=== PATIENT | male | born 1950 | race Caucasian/White ===

== ENCOUNTER 2019-01-25 18:55 | Inpatient (IN) | payer MEDICAID, MEDICARE ==
[2019-01-25] MEDS ORDERED: Acetaminophen 500 MG Tab PO ONE (19:10)
[2019-01-25] MEDS ORDERED: Sodium Chloride 0.9% 1,000 ML IV ONE (19:27)
--- NOTE | 2019-01-25 20:00 | EDM.PDOC ---
ED HPI GENERAL MEDICAL PROBLEM - General Chief Complaint: General Stated Complaint: epigastric pain , urinary incontinence Time Seen by Provider: 01/25/19 19:05 Source of Information: Reports: Patient, EMS, Family History Limitations: Reports: No Limitations - History of Present Illness INITIAL COMMENTS - FREE TEXT/NARRATIVE: woke up this am and arthritis pain was worse than usual, states he was unable to get out of bed also has severe epigastric pain , no Nausea or vomiting, had BM On arrival here noted to have fever and ill looking still has epigastric pain pt also noted to e incontinent of urine , admitted to having pain with urination today daughter states he has short term memory and drinks a lot of alcohol Onset: Sudden Onset Date: 01/25/19 Duration: Getting Worse Location: Reports: Abdomen Quality: Reports: Ache, Dull Severity: Mild Improves with: Reports: Rest Worsens with: Reports: Eating, Movement Associated Symptoms: Reports: Cough, Fever/Chills, Headaches, Loss of Appetite, Malaise, Weakness L shoulder to elbow, R hip Pain Score (Numeric/FACES): 10 Lower Neck Pain Score (Numeric/FACES): 3 - Related Data Allergies Allergy/AdvReac Type Severity Reaction Status Date / Time Penicillins Allergy Rash Verified 01/25/19 19:01 Home Meds: Home Meds Doxazosin [Doxazosin Mesylate] 8 mg PO DAILY 01/25/19 [History] Metoprolol Tartrate 100 mg PO BID 01/25/19 [History] amLODIPine [Norvasc] 10 mg PO DAILY 01/25/19 [History] Past Medical History HEENT History: Reports: Other (See Below) Other HEENT History: hydrocephalus Cardiovascular History: Reports: Hypertension Social & Family History - Family History Cardiac: Reports: Hypertension, [place] Respiratory: Reports: Interstitial Lung Disease - Tobacco Use Smoking Status *Q: Never Smoker ED ROS GENERAL - Review of Systems Review Of Systems: See Below Constitutional: Reports: Fever, Malaise, Fatigue, Decreased Appetite HEENT: Reports: No Symptoms Respiratory: Reports: Shortness of Breath, Cough, Sputum Cardiovascular: Reports: No Symptoms Endocrine: Reports: No Symptoms GI/Abdominal: Reports: No Symptoms : Reports: Dysuria, Incontinence Musculoskeletal: Reports: Shoulder Pain, Arm Pain, Joint Pain Skin: Reports: No Symptoms Neurological: Reports: Confusion, Difficulty Walking, Gait Disturbance Psychiatric: Reports: Confusion Immunologic: Reports: No Symptoms ED EXAM, GENERAL - Physical Exam Exam: See Below Exam Limited By: No Limitations General Appearance: Alert, WD/WN, No Apparent Distress Eye Exam: Bilateral Eye: EOMI Ears: Normal TMs Ear Exam: Bilateral Ear: TM normal Nose: Normal Mucosa Throat/Mouth: Other (dry mucous membranes) Head: Atraumatic, Normocephalic Neck: Supple, Non-Tender, Full Range of Motion Respiratory/Chest: Decreased Breath Sounds, Rales Cardiovascular: Regular Rate, Rhythm, Other (non pitting edema bilaterally) GI/Abdominal: Soft, Distended, Tender, Abnormal Bowel Sounds (hypoactive). No: Guarding, Rigid Back Exam: Decreased Range of Motion, Paraspinal Tenderness Extremities: Pedal Edema, Joint Swelling, Limited Range of Motion, Other ( athritic changes in both hands and feet) Neurological: Alert, Oriented, CN II-XII Intact Psychiatric: Normal Affect Skin Exam: Warm Lymphatic: No Adenopathy EKG INTERPRETATION EKG Date: 01/25/19 Rhythm: NSR P-Wave: Present QRS: Normal ST-T: Normal Comparison: NA - No Prior EKG Course - Vital Signs Text/Narrative:: labs eKG done. IV started , results indicate pt has possible infection , started on Rocephin and zithromax then noted to have UTI , Cultures sent Decision made to admit Discussed same with family and pt Last Recorded V/S: Last Vital Signs Temp 37.5 C 01/25/19 20:50 Pulse 116 H 01/25/19 20:50 Resp 18 01/25/19 20:50 BP 142/76 H 01/25/19 20:50 Pulse Ox 92 L 01/25/19 20:50 - Orders/Labs/Meds Orders: Active Orders 24 hr Category Date Time Status Admission Status [Patient Status] [ADT] Routine ADT 01/25/19 21:12 Active Patient Status [ADT] Routine ADT 01/25/19 20:50 Active Ambulate [RC] PER UNIT ROUTINE Care 01/25/19 20:50 Active Antiembolic Devices [RC] .Routine Care 01/25/19 21:07 Active EKG Documentation Completion [RC] ASDIRECTED Care 01/25/19 20:00 Active Intake and Output [RC] QSHIFT Care 01/25/19 21:08 Active Notify Provider Vital Signs [RC] ASDIRECTED Care 01/25/19 21:08 Active Pulse Oximetry [RC] PRN Care 01/25/19 20:50 Active Up With Assistance [RC] ASDIRECTED Care 01/25/19 20:50 Active VTE/DVT Education [RC] Click to Edit Care 01/25/19 21:07 Active Vital Signs [RC] Q4H Care 01/25/19 20:50 Active Regular Diet [DIET] Diet 01/25/19 Breakfast Ordered Abdomen 2V AP Flat Upright [CR] Stat Exams 01/25/19 19:29 Taken Chest 2V [CR] Stat Exams 01/25/19 19:27 Taken BASIC METABOLIC PANEL,BMP [CHEM] AM Lab 01/26/19 05:11 Ordered CBC WITH AUTO DIFF [HEME] AM Lab 01/26/19 05:11 Ordered CULTURE BLOOD [BC] Urgent Lab 01/25/19 19:38 Received CULTURE BLOOD [BC] Urgent Lab 01/25/19 20:43 Received CULTURE URINE [RM] Stat Lab 01/25/19 20:28 Received Acetaminophen [Tylenol] Med 01/25/19 20:50 Active 650 mg PO Q4H PRN Docusate Sodium [Colace] Med 01/25/19 20:50 Active 200 mg PO DAILY PRN Magnesium Hydroxide [Milk of Magnesia] Med 01/25/19 20:50 Active 30 ml PO BID PRN Antiembolic Hose [OM.PC] Stat Oth 01/25/19 20:50 Ordered Blood Culture x2 Reflex Set [OM.PC] Urgent Oth 01/25/19 20:39 Ordered DVT/VTE Prophylaxis Reflex [OM.PC] Per Unit Routine Oth 01/25/19 20:50 Ordered Resuscitation Status Routine Resus Stat 01/25/19 20:50 Ordered EKG 12 Lead [EK] Routine Ther 01/25/19 20:00 Ordered Medication Orders Acetaminophen (Tylenol) 650 mg PO Q4H PRN PRN Reason: analgesia/fever Docusate Sodium (Colace) 200 mg PO DAILY PRN PRN Reason: Constipation Sodium Chloride (Normal Saline) 1,000 mls @ 100 mls/hr IV ASDIRECTED GLORIA Magnesium Hydroxide (Milk Of Magnesia) 30 ml PO BID PRN PRN Reason: Constipation Labs: Laboratory Tests 01/25/19 01/25/19 01/25/19 Range/Units 19:38 19:38 19:38 WBC 19.6 H (4.5-12.0) X10-3/uL RBC 3.76 L (4.30-5.75) x10(6)uL Hgb 12.2 L (13.5-17.8) g/dL Hct 35.4 (30.0-51.3) % MCV 94.2 (80-96) fL MCH 32.4 (27.7-33.6) pg MCHC 34.4 (32.2-35.4) g/dL RDW 13.9 (11.5-15.5) % Plt Count 342 (125-369) X10(3)uL MPV 7.4 (7.4-10.4) fL Add Manual Diff Yes Neutrophils % (Manual) 95 H (46-82) % Band Neutrophils % 2 (0-6) % Lymphocytes % (Manual) 2 L (13-37) % Monocytes % (Manual) 1 L (4-12) % Sodium 136 (135-145) mmol/L Potassium 4.0 (3.5-5.3) mmol/L Chloride 99 L (100-110) mmol/L Carbon Dioxide 24 (21-32) mmol/L BUN 23 H (7-18) mg/dL Creatinine 1.0 (0.70-1.30) mg/dL Est Cr Clr Drug Dosing 64.38 mL/min Estimated GFR (MDRD) > 60 (>60) BUN/Creatinine Ratio 23.0 H (9-20) Glucose 104 (80-116) mg/dL Calcium 9.4 (8.6-10.2) mg/dL Total Bilirubin 0.5 (0.1-1.3) mg/dL AST 26 H (5-25) IU/L ALT 35 (12-36) U/L Alkaline Phosphatase 95 (56-112) IU/L Troponin I (<0.017-0.056) ng/mL C-Reactive Protein 4.4 H* (0.5-0.9) mg/dL Total Protein 7.8 (6.0-8.0) g/dL Albumin 3.9 (3.2-4.6) g/dL Globulin 3.9 g/dL Albumin/Globulin Ratio 1.0 Urine Color (YELLOW) Urine Appearance (CLEAR) Urine pH (5.0-6.5) Ur Specific [place] (1.010-1.025) Urine Protein (NEGATIVE) mg/dL Urine Glucose (UA) (NORMAL) mg/dL Urine Ketones (NEGATIVE) mg/dL Urine Occult Blood (NEGATIVE) Urine Nitrite (NEGATIVE) Urine Bilirubin (NEGATIVE) Urine Urobilinogen (NEGATIVE) mg/dL Ur Leukocyte Esterase (NEGATIVE) Urine RBC (0-5) Urine WBC (0-5) Ur Squamous Epith Cells (NS,R,O) Urine Bacteria (NS) 01/25/19 01/25/19 Range/Units 19:38 20:28 WBC (4.5-12.0) X10-3/uL RBC (4.30-5.75) x10(6)uL Hgb (13.5-17.8) g/dL Hct (30.0-51.3) % MCV (80-96) fL MCH (27.7-33.6) pg MCHC (32.2-35.4) g/dL RDW (11.5-15.5) % Plt Count (125-369) X10(3)uL MPV (7.4-10.4) fL Add Manual Diff Neutrophils % (Manual) (46-82) % Band Neutrophils % (0-6) % Lymphocytes % (Manual) (13-37) % Monocytes % (Manual) (4-12) % Sodium (135-145) mmol/L Potassium (3.5-5.3) mmol/L Chloride (100-110) mmol/L Carbon Dioxide (21-32) mmol/L BUN (7-18) mg/dL Creatinine (0.70-1.30) mg/dL Est Cr Clr Drug Dosing mL/min Estimated GFR (MDRD) (>60) BUN/Creatinine Ratio (9-20) Glucose (80-116) mg/dL Calcium (8.6-10.2) mg/dL Total Bilirubin (0.1-1.3) mg/dL AST (5-25) IU/L ALT (12-36) U/L Alkaline Phosphatase (56-112) IU/L Troponin I < 0.017 L (<0.017-0.056) ng/mL C-Reactive Protein (0.5-0.9) mg/dL Total Protein (6.0-8.0) g/dL Albumin (3.2-4.6) g/dL Globulin g/dL Albumin/Globulin Ratio Urine Color Yellow (YELLOW) Urine Appearance Slightly cloudy (CLEAR) Urine pH 5.0 (5.0-6.5) Ur Specific [place] 1.015 (1.010-1.025) Urine Protein 30 H (NEGATIVE) mg/dL Urine Glucose (UA) Normal (NORMAL) mg/dL Urine Ketones 15 H (NEGATIVE) mg/dL Urine Occult Blood Large H (NEGATIVE) Urine Nitrite Negative (NEGATIVE) Urine Bilirubin Negative (NEGATIVE) Urine Urobilinogen Normal (NEGATIVE) mg/dL Ur Leukocyte Esterase Large H (NEGATIVE) Urine RBC >100 H (0-5) Urine WBC >100 H (0-5) Ur Squamous Epith Cells Few H (NS,R,O) Urine Bacteria Many H (NS) Meds: Medications Generic Name Dose Route Start Last Admin Trade Name Daly PRN Reason Stop Dose Admin Acetaminophen 650 mg 01/25/19 20:50 Tylenol PO Q4H PRN analgesia/fever Docusate Sodium 200 mg 01/25/19 20:50 Colace PO DAILY PRN Constipation Sodium Chloride 1,000 mls @ 100 mls/hr 01/25/19 21:45 Normal Saline IV ASDIRECTED GLORIA Magnesium Hydroxide 30 ml 01/25/19 20:50 Milk Of Magnesia PO BID PRN Constipation Discontinued Medications Generic Name Dose Route Start Last Admin Trade Name Daly PRN Reason Stop Dose Admin Acetaminophen 1,000 mg 01/25/19 19:10 01/25/19 19:18 Tylenol Extra Strength PO 01/25/19 19:11 1,000 mg ONETIME ONE Administration Sodium Chloride 1,000 mls @ 999 mls/hr 01/25/19 19:27 01/25/19 19:55 Normal Saline IV 01/25/19 20:27 999 mls/hr .BOLUS ONE Administration Ceftriaxone Sodium 1 gm/ 50 mls @ 200 mls/hr 01/25/19 20:39 01/25/19 20:55 Sodium Chloride IV 01/25/19 20:53 200 mls/hr ONETIME ONE Administration Azithromycin 500 mg/ Sodium 250 mls @ 250 mls/hr 01/25/19 20:41 01/25/19 21: 28 Chloride IV 01/25/19 21:40 250 mls/hr ONETIME ONE Administration Departure - Departure Time of Disposition: 09:10 Disposition: Admitted As Inpatient 67 Clinical Impression: UTI (urinary tract infection), Fever - Discharge Information *PRESCRIPTION DRUG MONITORING PROGRAM REVIEWED*: Not Applicable *COPY OF PRESCRIPTION DRUG MONITORING REPORT IN PATIENT FAM: Not Applicable Sepsis Event Note - Evaluation Sepsis Screening Result: Possible Sepsis Risk - Focused Exam Vital Signs: Vital Signs Temp Pulse Resp BP Pulse Ox 01/25/19 20:50 37.5 C 116 H 18 142/76 H 92 L 01/25/19 18:55 39.3 C H 131 H 28 H 161/92 H 94 L Date Exam was Performed: 01/25/19 Time Exam was Performed: 21:55 - My Orders Last 24 Hours: My Active Orders 01/25/19 19:27 Chest 2V [CR] Stat 01/25/19 19:29 Abdomen 2V AP Flat Upright [CR] Stat 01/25/19 19:38 CULTURE BLOOD [BC] Urgent 01/25/19 20:00 EKG Documentation Completion [RC] ASDIRECTED EKG 12 Lead [EK] Routine 01/25/19 20:28 CULTURE URINE [RM] Stat 01/25/19 20:39 Blood Culture x2 Reflex Set [OM.PC] Urgent 01/25/19 20:43 CULTURE BLOOD [BC] Urgent 01/25/19 20:50 Patient Status [ADT] Routine Ambulate [RC] PER UNIT ROUTINE Pulse Oximetry [RC] PRN Up With Assistance [RC] ASDIRECTED Vital Signs [RC] Q4H Acetaminophen [Tylenol] 650 mg PO Q4H PRN Docusate Sodium [Colace] 200 mg PO DAILY PRN Magnesium Hydroxide [Milk of Magnesia] 30 ml PO BID PRN Antiembolic Hose [OM.PC] Stat DVT/VTE Prophylaxis Reflex [OM.PC] Per Unit Routine Resuscitation Status Routine 01/25/19 21:07 Antiembolic Devices [RC] .Routine VTE/DVT Education [RC] Click to Edit 01/25/19 21:08 Intake and Output [RC] QSHIFT Notify Provider Vital Signs [RC] ASDIRECTED 01/25/19 21:12 Admission Status [Patient Status] [ADT] Routine 01/25/19 Breakfast Regular Diet [DIET] 01/26/19 05:11 BASIC METABOLIC PANEL,BMP [CHEM] AM CBC WITH AUTO DIFF [HEME] AM - Assessment/Plan Last 24 Hours: My Active Orders 01/25/19 19:27 Chest 2V [CR] Stat 01/25/19 19:29 Abdomen 2V AP Flat Upright [CR] Stat 01/25/19 19:38 CULTURE BLOOD [BC] Urgent 01/25/19 20:00 EKG Documentation Completion [RC] ASDIRECTED EKG 12 Lead [EK] Routine 01/25/19 20:28 CULTURE URINE [RM] Stat 01/25/19 20:39 Blood Culture x2 Reflex Set [OM.PC] Urgent 01/25/19 20:43 CULTURE BLOOD [BC] Urgent 01/25/19 20:50 Patient Status [ADT] Routine Ambulate [RC] PER UNIT ROUTINE Pulse Oximetry [RC] PRN Up With Assistance [RC] ASDIRECTED Vital Signs [RC] Q4H Acetaminophen [Tylenol] 650 mg PO Q4H PRN Docusate Sodium [Colace] 200 mg PO DAILY PRN Magnesium Hydroxide [Milk of Magnesia] 30 ml PO BID PRN Antiembolic Hose [OM.PC] Stat DVT/VTE Prophylaxis Reflex [OM.PC] Per Unit Routine Resuscitation Status Routine 01/25/19 21:07 Antiembolic Devices [RC] .Routine VTE/DVT Education [RC] Click to Edit 01/25/19 21:08 Intake and Output [RC] QSHIFT Notify Provider Vital Signs [RC] ASDIRECTED 01/25/19 21:12 Admission Status [Patient Status] [ADT] Routine 01/25/19 Breakfast Regular Diet [DIET] 01/26/19 05:11 BASIC METABOLIC PANEL,BMP [CHEM] AM CBC WITH AUTO DIFF [HEME] AM
[2019-01-25] MEDS ORDERED: cefTRIAXone 1 GM in Sodium Chloride 0.9% 50 ML IV ONE (20:39)
[2019-01-25] MEDS ORDERED: Azithromycin 500 MG in Sodium Chloride 0.9% 250 ML IV ONE (20:41)
[2019-01-25] MEDS ORDERED: Magnesium Hydroxide 400 MG/5 ML Susp 30 ML Cup PO PRN (20:50)
[2019-01-25] MEDS ORDERED: Docusate Sodium 100 MG Cap PO PRN (20:50)
[2019-01-25] MEDS ORDERED: Sodium Chloride 0.9% 1,000 ML IV SCH (21:45)
[2019-01-26] MEDS: Acetaminophen 325 MG Tab PO PRN ×3 (07:43→20:41)
--- NOTE | 2019-01-26 09:06 | PCM.HP.2 ---
H&P History of Present Illness - General Date of Service: 01/26/19 Admit Problem/Dx: Admission Diagnosis/Problem Admission Diagnosis/Problem UTI, Urinary tract infectious disease Source of Information: Patient, Old Records History Limitations: Reports: No Limitations - History of Present Illness Initial Comments - Free Text/Narative: Mr. Sidhu is a 68-year-old male admitted yesterday because of pain. He complained epigastric pain that is intermittent in nature moderate to severe in intensity, with no radiation. Sudden onset. He also complains of burning micturition, frequency and was found a fever. 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 He is also reported to drink 3-4 beers of alcohol daily. Lower Neck Pain Score (Numeric/FACES): 3 L shoulder to elbow, R hip Pain Score (Numeric/FACES): 10 - Related Data Allergies/Adverse Reactions: Allergies Allergy/AdvReac Type Severity Reaction Status Date / Time Penicillins Allergy Rash Verified 01/25/19 19:01 Home Medications: Home Meds Doxazosin [Doxazosin Mesylate] 8 mg PO DAILY 01/25/19 [History] Dutasteride 0.5 mg PO DAILY 01/25/19 [History] Escitalopram Oxalate 10 mg PO DAILY 01/25/19 [History] Ferrous Sulfate 325 mg PO DAILY 01/25/19 [History] Lisinopril 40 mg PO DAILY 01/25/19 [History] Metoprolol Tartrate 100 mg PO BID 01/25/19 [History] Multivitamin/Iron/Folic Acid [Centrum Adults Tablet] 1 each PO DAILY 01/25/19 [ History] Omeprazole 20 mg PO DAILY 01/25/19 [History] Potassium Chloride 20 meq PO DAILY 01/25/19 [History] Sennosides/Docusate Sodium [Senna-S] 1 tab PO DAILY 01/25/19 [History] Simvastatin 20 mg PO BEDTIME 01/25/19 [History] amLODIPine [Norvasc] 10 mg PO DAILY 01/25/19 [History] Past Medical History HEENT History: Reports: Other (See Below) Other HEENT History: hydrocephalus Cardiovascular History: Reports: Hypertension Gastrointestinal History: Reports: Colon Polyp, GI Bleed, Other (See Below) Other Gastrointestinal History: gi bleed 1990 Genitourinary History: Reports: BPH, Urinary Incontinence Musculoskeletal History: Reports: Back Pain, Chronic, Osteoarthritis Neurological History: Reports: Concussion, CVA, Other (See Below) Other Neuro History: Lost some use of L arm Psychiatric History: Reports: Depression Hematologic History: Reports: Blood Transfusion(s) - Infectious Disease History Infectious Disease History: Reports: Chicken Pox, Measles, Mumps, Shingles - Past Surgical History Cardiovascular Surgical History: Reports: None GI Surgical History: Reports: Colonoscopy, Polypectomy Other GI Surgeries/Procedures: polypectomy 2013 Male Surgical History: Reports: Circumcision, Renal Calculus Neurological Surgical History: Reports: None Musculoskeletal Surgical History: Reports: None Social & Family History - Family History Family Medical History: Noncontributory Cardiac: Reports: Hypertension, [place] Respiratory: Reports: Interstitial Lung Disease - Tobacco Use Smoking Status *Q: Never Smoker Second Hand Smoke Exposure: No - Caffeine Use Caffeine Use: Reports: Coffee Other Caffeine Use: 1-2 cups a day - Alcohol Use Days Per Week of Alcohol Use: 3 Number of Drinks Per Day: 4 Total Drinks Per Week: 12 Date of Last Drink: 01/24/19 Time of Last Drink: 16:00 - Recreational Drug Use Recreational Drug Use: No H&P Review of Systems - Review of Systems: Review Of Systems: Comprehensive ROS is negative, except as noted in HPI. Exam - Exam Exam: See Below - Vital Signs Vital Signs: Last Vital Signs Temp 98.5 F 01/26/19 03:53 Pulse 94 01/26/19 03:53 Resp 18 01/26/19 03:53 BP 151/89 H 01/26/19 03:53 Pulse Ox 95 01/26/19 03:53 Weight: 91.58 kg - Exam General: Alert, Oriented, 4 HEENT: PERRLA, Hearing Intact, Mucosa Moist & Elfrida, Nares Patent, Normal Nasal Septum, Posterior Pharynx Clear, Conjunctiva Clear, EOMI, EACs Clear, TMs Clear Neck: Supple, Trachea Midline, 2 Lungs: Clear to Auscultation, Normal Respiratory Effort Cardiovascular: Regular Rate, Regular Rhythm GI/Abdominal Exam: Normal Bowel Sounds, Soft, Non-Tender, No Organomegaly, No Distention, No Abnormal Bruit, No Mass, Pelvis Stable (Male) Exam: Deferred Rectal (Males) Exam: Deferred Back Exam: Normal Inspection, Full Range of Motion, NT Extremities: Normal Inspection, Normal Range of Motion, Non-Tender, No Pedal Edema, Normal Capillary Refill Skin: Warm, Dry, Intact Neurological: Cranial Nerves Intact, Reflexes Equal Bilateral Neuro Extensive - Mental Status: Alert, Disorientation to Time. No: Oriented x3 Neuro Extensive - Motor, Sensory, Reflexes: CN II-XII Intact, Normal Gait, Normal Reflexes Psychiatric: Alert, Normal Affect, Normal Mood - Patient Data Lab Results Last 24 hrs: Laboratory Results - last 24 hr 01/25/19 01/25/19 01/25/19 Range/Units 19:38 19:38 19:38 WBC 19.6 H (4.5-12.0) X10-3/uL RBC 3.76 L (4.30-5.75) x10(6)uL Hgb 12.2 L (13.5-17.8) g/dL Hct 35.4 (30.0-51.3) % MCV 94.2 (80-96) fL MCH 32.4 (27.7-33.6) pg MCHC 34.4 (32.2-35.4) g/dL RDW 13.9 (11.5-15.5) % Plt Count 342 (125-369) X10(3)uL MPV 7.4 (7.4-10.4) fL Add Manual Diff Yes Neutrophils % (Manual) 95 H (46-82) % Band Neutrophils % 2 (0-6) % Lymphocytes % (Manual) 2 L (13-37) % Monocytes % (Manual) 1 L (4-12) % Sodium 136 (135-145) mmol/L Potassium 4.0 (3.5-5.3) mmol/L Chloride 99 L (100-110) mmol/L Carbon Dioxide 24 (21-32) mmol/L BUN 23 H (7-18) mg/dL Creatinine 1.0 (0.70-1.30) mg/dL Est Cr Clr Drug Dosing 64.38 mL/min Estimated GFR (MDRD) > 60 (>60) BUN/Creatinine Ratio 23.0 H (9-20) Glucose 104 (80-116) mg/dL Calcium 9.4 (8.6-10.2) mg/dL Total Bilirubin 0.5 (0.1-1.3) mg/dL AST 26 H (5-25) IU/L ALT 35 (12-36) U/L Alkaline Phosphatase 95 (56-112) IU/L Troponin I (<0.017-0.056) ng/mL C-Reactive Protein 4.4 H* (0.5-0.9) mg/dL Total Protein 7.8 (6.0-8.0) g/dL Albumin 3.9 (3.2-4.6) g/dL Globulin 3.9 g/dL Albumin/Globulin Ratio 1.0 Urine Color (YELLOW) Urine Appearance (CLEAR) Urine pH (5.0-6.5) Ur Specific [place] (1.010-1.025) Urine Protein (NEGATIVE) mg/dL Urine Glucose (UA) (NORMAL) mg/dL Urine Ketones (NEGATIVE) mg/dL Urine Occult Blood (NEGATIVE) Urine Nitrite (NEGATIVE) Urine Bilirubin (NEGATIVE) Urine Urobilinogen (NEGATIVE) mg/dL Ur Leukocyte Esterase (NEGATIVE) Urine RBC (0-5) Urine WBC (0-5) Ur Squamous Epith Cells (NS,R,O) Urine Bacteria (NS) Ethyl Alcohol (<0.03) % 01/25/19 01/25/19 01/25/19 Range/Units 19:38 19:38 20:28 WBC (4.5-12.0) X10-3/uL RBC (4.30-5.75) x10(6)uL Hgb (13.5-17.8) g/dL Hct (30.0-51.3) % MCV (80-96) fL MCH (27.7-33.6) pg MCHC (32.2-35.4) g/dL RDW (11.5-15.5) % Plt Count (125-369) X10(3)uL MPV (7.4-10.4) fL Add Manual Diff Neutrophils % (Manual) (46-82) % Band Neutrophils % (0-6) % Lymphocytes % (Manual) (13-37) % Monocytes % (Manual) (4-12) % Sodium (135-145) mmol/L Potassium (3.5-5.3) mmol/L Chloride (100-110) mmol/L Carbon Dioxide (21-32) mmol/L BUN (7-18) mg/dL Creatinine (0.70-1.30) mg/dL Est Cr Clr Drug Dosing mL/min Estimated GFR (MDRD) (>60) BUN/Creatinine Ratio (9-20) Glucose (80-116) mg/dL Calcium (8.6-10.2) mg/dL Total Bilirubin (0.1-1.3) mg/dL AST (5-25) IU/L ALT (12-36) U/L Alkaline Phosphatase (56-112) IU/L Troponin I < 0.017 L (<0.017-0.056) ng/mL C-Reactive Protein (0.5-0.9) mg/dL Total Protein (6.0-8.0) g/dL Albumin (3.2-4.6) g/dL Globulin g/dL Albumin/Globulin Ratio Urine Color Yellow (YELLOW) Urine Appearance Slightly cloudy (CLEAR) Urine pH 5.0 (5.0-6.5) Ur Specific [place] 1.015 (1.010-1.025) Urine Protein 30 H (NEGATIVE) mg/dL Urine Glucose (UA) Normal (NORMAL) mg/dL Urine Ketones 15 H (NEGATIVE) mg/dL Urine Occult Blood Large H (NEGATIVE) Urine Nitrite Negative (NEGATIVE) Urine Bilirubin Negative (NEGATIVE) Urine Urobilinogen Normal (NEGATIVE) mg/dL Ur Leukocyte Esterase Large H (NEGATIVE) Urine RBC >100 H (0-5) Urine WBC >100 H (0-5) Ur Squamous Epith Cells Few H (NS,R,O) Urine Bacteria Many H (NS) Ethyl Alcohol < 0.03 (<0.03) % 01/26/19 01/26/19 Range/Units 06:40 06:40 WBC 21.6 H (4.5-12.0) X10-3/uL RBC 3.36 L (4.30-5.75) x10(6)uL Hgb 10.7 L (13.5-17.8) g/dL Hct 31.4 (30.0-51.3) % MCV 93.4 (80-96) fL MCH 31.9 (27.7-33.6) pg MCHC 34.1 (32.2-35.4) g/dL RDW 13.4 (11.5-15.5) % Plt Count 299 (125-369) X10(3)uL MPV 7.1 L (7.4-10.4) fL Add Manual Diff Yes Neutrophils % (Manual) 81 (46-82) % Band Neutrophils % (0-6) % Lymphocytes % (Manual) 11 L (13-37) % Monocytes % (Manual) 8 (4-12) % Sodium 138 (135-145) mmol/L Potassium 3.9 (3.5-5.3) mmol/L Chloride 102 (100-110) mmol/L Carbon Dioxide 24 (21-32) mmol/L BUN 17 (7-18) mg/dL Creatinine 0.9 (0.70-1.30) mg/dL Est Cr Clr Drug Dosing 71.87 mL/min Estimated GFR (MDRD) > 60 (>60) BUN/Creatinine Ratio 18.9 (9-20) Glucose 95 (80-116) mg/dL Calcium 8.7 (8.6-10.2) mg/dL Total Bilirubin (0.1-1.3) mg/dL AST (5-25) IU/L ALT (12-36) U/L Alkaline Phosphatase (56-112) IU/L Troponin I (<0.017-0.056) ng/mL C-Reactive Protein (0.5-0.9) mg/dL Total Protein (6.0-8.0) g/dL Albumin (3.2-4.6) g/dL Globulin g/dL Albumin/Globulin Ratio Urine Color (YELLOW) Urine Appearance (CLEAR) Urine pH (5.0-6.5) Ur Specific [place] (1.010-1.025) Urine Protein (NEGATIVE) mg/dL Urine Glucose (UA) (NORMAL) mg/dL Urine Ketones (NEGATIVE) mg/dL Urine Occult Blood (NEGATIVE) Urine Nitrite (NEGATIVE) Urine Bilirubin (NEGATIVE) Urine Urobilinogen (NEGATIVE) mg/dL Ur Leukocyte Esterase (NEGATIVE) Urine RBC (0-5) Urine WBC (0-5) Ur Squamous Epith Cells (NS,R,O) Urine Bacteria (NS) Ethyl Alcohol (<0.03) % Result Diagrams: 01/26/19 06:40 01/26/19 06:40 Bharat Results Last 24 hrs: Microbiology 01/25/19 19:30 Influenza Type A Antigen Screen - Final Nasopharyngeal Swab NEGATIVE INFLUENZA A VIRUS AG REFERENCE RANGE: NEGATIVE Influenza Type B Antigen Screen - Final NEGATIVE INFLUENZA B VIRUS AG REFERENCE RANGE: NEGATIVE EKG INTERPRETATION Rhythm: NSR Sepsis Event Note - Evaluation Sepsis Screening Result: No Definite Risk - Focused Exam Vital Signs: Vital Signs Temp Pulse Resp BP Pulse Ox 01/26/19 03:53 98.5 F 94 18 151/89 H 95 01/26/19 00:00 99.0 F 105 H 21 H 133/79 94 L 01/25/19 21:20 99.8 F 122 H 22 H 156/88 H 95 Date Exam was Performed: 01/26/19 Time Exam was Performed: 09:00 - Problem List (1) UTI (urinary tract infection) SNOMED Code(s): 91752473 ICD Code: N39.0 - URINARY TRACT INFECTION, SITE NOT SPECIFIED Status: Acute Current Visit: Yes (2) Epigastric abdominal pain SNOMED Code(s): 77343123 ICD Code: R10.13 - EPIGASTRIC PAIN Status: Acute Current Visit: Yes (3) Knee pain SNOMED Code(s): 48495371 ICD Code: M25.569 - PAIN IN UNSPECIFIED KNEE Status: Acute Current Visit : Yes Qualifiers: Chronicity: chronic Laterality: bilateral Qualified Code(s): M25.561 - Pain in right knee; M25.562 - Pain in left knee; G89.29 - Other chronic pain (4) Alcohol dependence SNOMED Code(s): 14144053 ICD Code: F10.20 - ALCOHOL DEPENDENCE, UNCOMPLICATED Status: Chronic Current Visit: Yes Qualifiers: Substance use status: uncomplicated Qualified Code(s): F10.20 - Alcohol dependence, uncomplicated (5) HTN (hypertension) SNOMED Code(s): 42562414 ICD Code: I10 - ESSENTIAL (PRIMARY) HYPERTENSION Status: Chronic Current Visit: Yes Qualifiers: Hypertension type: essential hypertension Qualified Code(s): I10 - Essential (primary) hypertension (6) HLD (hyperlipidemia) SNOMED Code(s): 38015436 ICD Code: E78.5 - HYPERLIPIDEMIA, UNSPECIFIED Status: Chronic Current Visit: Yes (7) Anxiety and depression SNOMED Code(s): 300954617 ICD Code: F41.9 - ANXIETY DISORDER, UNSPECIFIED; F32.9 - MAJOR DEPRESSIVE DISORDER, SINGLE EPISODE, UNSPECIFIED Status: Acute Current Visit: Yes (8) Anemia SNOMED Code(s): 854893741 ICD Code: D64.9 - ANEMIA, UNSPECIFIED Status: Acute Current Visit: Yes (9) Memory changes SNOMED Code(s): 971168367 ICD Code: R41.3 - OTHER AMNESIA Status: Acute Current Visit: Yes Problem List Initiated/Reviewed/Updated: Yes Orders Last 24hrs: Active Orders 24 hr Category Date Time Status Admission Status [Patient Status] [ADT] Routine ADT 01/25/19 21:12 Active Patient Status [ADT] Routine ADT 01/25/19 20:50 Active Ambulate [RC] PER UNIT ROUTINE Care 01/25/19 20:50 Active Antiembolic Devices [RC] .Routine Care 01/25/19 21:07 Active EKG Documentation Completion [RC] ASDIRECTED Care 01/25/19 20:00 Active Intake and Output [RC] QSHIFT Care 01/25/19 21:08 Active Notify Provider Vital Signs [RC] ASDIRECTED Care 01/25/19 21:08 Active Pulse Oximetry [RC] PRN Care 01/25/19 20:50 Active Up With Assistance [RC] ASDIRECTED Care 01/25/19 20:50 Active VTE/DVT Education [RC] Click to Edit Care 01/25/19 21:07 Active Vital Signs [RC] Q4H Care 01/25/19 20:50 Active OT Evaluation and Treatment [CONS] Routine Cons 01/26/19 08:57 Ordered PT Evaluation and Treatment [CONS] Routine Cons 01/26/19 08:57 Ordered Abdomen 2V AP Flat Upright [CR] Stat Exams 01/25/19 19:29 Taken Chest 2V [CR] Stat Exams 01/25/19 19:27 Taken BASIC METABOLIC PANEL,BMP [CHEM] AM Lab 01/27/19 05:11 Ordered CBC WITH AUTO DIFF [HEME] AM Lab 01/27/19 05:11 Ordered CULTURE BLOOD [BC] Urgent Lab 01/25/19 19:38 Received CULTURE BLOOD [BC] Urgent Lab 01/25/19 20:43 Received CULTURE URINE [RM] Stat Lab 01/25/19 20:28 Received LIPASE [CHEM] Routine Lab 01/26/19 08:57 Ordered Acetaminophen [Tylenol] Med 01/25/19 20:50 Active 650 mg PO Q4H PRN Docusate Sodium [Colace] Med 01/25/19 20:50 Active 200 mg PO DAILY PRN Docusate Sodium/Sennosides [Senna Plus] Med 01/26/19 09:00 Ordered 1 tab PO DAILY Doxazosin [Cardura] Med 01/26/19 09:00 Ordered 8 mg PO DAILY Dutasteride [Avodart] Med 01/26/19 09:00 Ordered 0.5 mg PO DAILY Escitalopram [Lexapro] Med 01/26/19 09:00 Ordered 10 mg PO DAILY Levofloxacin/Dextrose 5%-Water [Levaquin in D5W 750 MG/ Med 01/26/19 09:00 Ordered 150 ML] 750 mg Premix Bag 1 bag IV Q24H Lisinopril [Prinivil] Med 01/26/19 09:00 Ordered 40 mg PO DAILY Magnesium Hydroxide [Milk of Magnesia] Med 01/25/19 20:50 Active 30 ml PO BID PRN Metoprolol Tartrate [Lopressor] Med 01/26/19 09:00 Ordered 100 mg PO BID Multivitamin/Iron/Folic Acid [Centrum Adults Tablet] Med 01/26/19 09:00 Ordered 1 each PO DAILY Omeprazole [Omeprazole] Med 01/26/19 09:00 Ordered 20 mg PO DAILY Simvastatin [Zocor] Med 01/26/19 21:00 Ordered 20 mg PO BEDTIME amLODIPine [Norvasc] Med 01/26/19 09:00 Ordered 10 mg PO DAILY Antiembolic Hose [OM.PC] Stat Oth 01/25/19 20:50 Ordered Blood Culture x2 Reflex Set [OM.PC] Urgent Oth 01/25/19 20:39 Ordered DVT/VTE Prophylaxis Reflex [OM.PC] Per Unit Routine Oth 01/25/19 20:50 Ordered Resuscitation Status Routine Resus Stat 01/25/19 20:50 Ordered EKG 12 Lead [EK] Routine Ther 01/25/19 20:00 Ordered Medication Orders Acetaminophen (Tylenol) 650 mg PO Q4H PRN PRN Reason: analgesia/fever Last Admin: 01/26/19 07:43 Dose: 650 mg Amlodipine Besylate (Norvasc) 10 mg PO DAILY [facility] Docusate Sodium (Colace) 200 mg PO DAILY PRN PRN Reason: Constipation Levofloxacin/Dextrose 750 mg/ (Premix) 150 mls @ 100 mls/hr IV Q24H [facility] Magnesium Hydroxide (Milk Of Magnesia) 30 ml PO BID PRN PRN Reason: Constipation Assessment/Plan Comment:: Mr. Sidhu has a high white cell count, and fever I suspect that he has an upper urinary tract infection. Pneumonia can not be ruled out on Xray.I will start him on Levaquin 750 mg IV daily. I've discontinued IV fluids and will encourage oral intake. I will ask physical and occupational therapy to see him for ambulation. Resume his oral medications for hypertension hyperlipidemia anxiety and depression. - Mortality Measure Prognosis:: Good
[2019-01-26] MEDS: Levofloxacin/Dextrose 5%-Water 750 MG in Premix Bag 1 BAG IV SCH (10:04)
[2019-01-26] MEDS: Doxazosin 4 MG Tab PO SCH (10:10)
[2019-01-26] MEDS: Dutasteride 0.5 MG Cap PO SCH (10:10)
[2019-01-26] MEDS: Escitalopram 10 MG Tab PO SCH (10:11)
[2019-01-26] MEDS: amLODIPine 10 MG Tab PO SCH (10:12)
[2019-01-26] MEDS: Metoprolol Tartrate 100 MG Tab PO SCH ×2 (10:12→20:12)
[2019-01-26] MEDS: Pantoprazole 40 MG Tab.CR PO SCH (10:13)
[2019-01-26] MEDS: Multivitamins,Therapeutic Tab PO SCH (10:14)
--- NOTE | 2019-01-26 14:58 | CR ---
INDICATION: Epigastric pain. ABDOMEN, 2 VIEWS: Five images of the abdomen were obtained, upright seated in chair and supine. No definite free air was seen. The pattern of gas and feces is fairly nonspecific without evidence of free air or obstruction demonstrated. A dextroconcave rotoscoliosis of the lumbar spine is noted of moderate degree. No definite organomegaly, mass lesions or nonvascular pathologic calcifications were identified. Multiple phleboliths are noted in the pelvis. IMPRESSION: 1. Nonacute abdomen. 2. Scoliosis lumbar spine. MTDD
--- NOTE | 2019-01-26 15:01 | CR ---
INDICATION: Fever. CHEST, 2 VIEWS: AP and lateral upright views of the chest were obtained and reveal the heart to be normal in size. There is increased density behind the heart, which may simply be on the basis of a somewhat tortuous aorta. Small fixed hiatal hernia could also be present but is not well demonstrated. The aorta is tortuous with calcification in the arch. The heart did not appear grossly enlarged. A definite active infiltrate or effusion was not identified. Degenerative changes noted in the lower thoracic spine and upper lumbar spine. Overlying snaps are noted. IMPRESSION: No acute process. No consolidating pneumonia identified. MTDD
[2019-01-26] MEDS: Simvastatin 20 MG Tab PO SCH (20:12)
[2019-01-27] MEDS: Acetaminophen 325 MG Tab PO PRN ×3 (03:51→17:24)
[2019-01-27] MEDS: Pantoprazole 40 MG Tab.CR PO SCH (04:59)
[2019-01-27] MEDS: Doxazosin 4 MG Tab PO SCH (09:35)
[2019-01-27] MEDS: Dutasteride 0.5 MG Cap PO SCH (09:35)
[2019-01-27] MEDS: Escitalopram 10 MG Tab PO SCH (09:36)
[2019-01-27] MEDS: amLODIPine 10 MG Tab PO SCH (09:36)
[2019-01-27] MEDS: Metoprolol Tartrate 100 MG Tab PO SCH ×2 (09:36→20:34)
[2019-01-27] MEDS: Multivitamins,Therapeutic Tab PO SCH (09:37)
[2019-01-27] MEDS: Levofloxacin/Dextrose 5%-Water 750 MG in Premix Bag 1 BAG IV SCH (09:38)
[2019-01-27] MEDS: Fluticasone Propionate Nasal Spray 16 GM Bottle NASBOTH SCH (12:11)
--- NOTE | 2019-01-27 12:29 | PCM.PN ---
- General Info Date of Service: 01/27/19 Subjective Update: Patient is feeling better, no longer has the epigastric pain, still some left abdomen pain. Denies shortness of breath, chest pain, nausea, vomiting or diarrhea. Denies peripheral edema. Lives at [facility]. States he has been incontinent at home due to enlarged prostate. No fevers or chills. - Patient Data Vitals - Most Recent: Last Vital Signs Temp 97 F 01/27/19 08:00 Pulse 100 01/27/19 09:36 Resp 20 01/27/19 08:00 BP 116/79 01/27/19 09:36 Pulse Ox 96 01/27/19 08:00 Weight - Most Recent: 201 lb 14.4 oz I&O - Last 24 Hours: Intake & Output 01/26/19 01/27/19 01/27/19 22:59 06:59 14:59 Intake Total 900 400 Output Total 300 200 Balance 600 200 Lab Results Last 24 Hours: Laboratory Results - last 24 hr 01/27/19 01/27/19 Range/Units 06:10 06:10 WBC 15.3 H (4.5-12.0) X10-3/uL RBC 3.54 L (4.30-5.75) x10(6)uL Hgb 11.5 L (13.5-17.8) g/dL Hct 33.6 (30.0-51.3) % MCV 94.9 (80-96) fL MCH 32.5 (27.7-33.6) pg MCHC 34.2 (32.2-35.4) g/dL RDW 14.1 (11.5-15.5) % Plt Count 298 (125-369) X10(3)uL MPV 7.6 (7.4-10.4) fL Neut % (Auto) 80.3 (46-82) % Lymph % (Auto) 8.7 L (13-37) % [place] % (Auto) 9.1 (4-12) % Eos % (Auto) 2 (1.0-5.0) % Baso % (Auto) 0 (0-2) % Neut # (Auto) 12.3 H (1.6-8.3) # Lymph # (Auto) 1.3 (0.6-5.0) # [place] # (Auto) 1.4 H (0.0-1.3) # Eos # (Auto) 0.2 (0.0-0.8) # Baso # (Auto) 0.1 (0.0-0.2) # Sodium 133 L (135-145) mmol/L Potassium 4.1 (3.5-5.3) mmol/L Chloride 98 L (100-110) mmol/L Carbon Dioxide 24 (21-32) mmol/L BUN 16 (7-18) mg/dL Creatinine 0.9 (0.70-1.30) mg/dL Est Cr Clr Drug Dosing 71.87 mL/min Estimated GFR (MDRD) > 60 (>60) BUN/Creatinine Ratio 17.8 (9-20) Glucose 98 (80-116) mg/dL Calcium 9.0 (8.6-10.2) mg/dL Bharat Results Last 24 Hours: Microbiology 01/25/19 20:43 Aerobic Blood Culture - Preliminary Blood - Venous - Lab Draw NO GROWTH AFTER 1 DAY Anaerobic Blood Culture - Preliminary NO GROWTH AFTER 1 DAY 01/25/19 19:38 Aerobic Blood Culture - Preliminary Blood - Venous NO GROWTH AFTER 1 DAY Anaerobic Blood Culture - Preliminary NO GROWTH AFTER 1 DAY 01/25/19 20:28 Urine Culture - Preliminary Urine, Midstream Gram Negative Rods Med Orders - Current: Current Medications Acetaminophen (Tylenol) 650 mg PO Q4H PRN PRN Reason: analgesia/fever Last Admin: 01/27/19 12:12 Dose: 650 mg Amlodipine Besylate (Norvasc) 10 mg PO DAILY [facility] Last Admin: 01/27/19 09:36 Dose: 10 mg Docusate Sodium (Colace) 200 mg PO DAILY PRN PRN Reason: Constipation Doxazosin Mesylate (Cardura) 8 mg PO DAILY [facility] Last Admin: 01/27/19 09:35 Dose: 8 mg Dutasteride (Avodart) 0.5 mg PO DAILY [facility] Last Admin: 01/27/19 09:35 Dose: 0.5 mg Escitalopram Oxalate (Lexapro) 10 mg PO DAILY [facility] Last Admin: 01/27/19 09:36 Dose: 10 mg Fluticasone Propionate (Flonase) 0 gm NASBOTH DAILY [facility] Last Admin: 01/27/19 12:11 Dose: 1 unit Levofloxacin/Dextrose 750 mg/ (Premix) 150 mls @ 100 mls/hr IV Q24H [facility] Last Admin: 01/27/19 09:38 Dose: 100 mls/hr Lisinopril (Prinivil) 40 mg PO DAILY [facility] Last Admin: 01/27/19 09:37 Dose: 40 mg Magnesium Hydroxide (Milk Of Magnesia) 30 ml PO BID PRN PRN Reason: Constipation Metoprolol Tartrate (Lopressor) 100 mg PO BID [facility] Last Admin: 01/27/19 09:36 Dose: 100 mg Multivitamins (Thera) 1 each PO DAILY [facility] Last Admin: 01/27/19 09:37 Dose: 1 each Pantoprazole Sodium (Protonix) 40 mg PO DAILY@0600 [facility] Last Admin: 01/27/19 04:59 Dose: 40 mg Senna/Docusate Sodium (Senna Plus) 1 tab PO DAILY [facility] Last Admin: 01/27/19 09:37 Dose: 1 tab Simvastatin (Zocor) 20 mg PO BEDTIME [facility] Last Admin: 01/26/19 20:12 Dose: 20 mg Discontinued Medications Acetaminophen (Tylenol Extra Strength) 1,000 mg PO ONETIME ONE Stop: 01/25/19 19:11 Last Admin: 01/25/19 19:18 Dose: 1,000 mg Sodium Chloride (Normal Saline) 1,000 mls @ 999 mls/hr IV .BOLUS ONE Stop: 01/25/19 20:27 Last Admin: 01/25/19 19:55 Dose: 999 mls/hr Ceftriaxone Sodium 1 gm/ (Sodium Chloride) 50 mls @ 200 mls/hr IV ONETIME ONE Stop: 01/25/19 20:53 Last Admin: 01/25/19 20:55 Dose: 200 mls/hr Azithromycin 500 mg/ Sodium (Chloride) 250 mls @ 250 mls/hr IV ONETIME ONE Stop: 01/25/19 21:40 Last Admin: 01/25/19 21:28 Dose: 250 mls/hr Sodium Chloride (Normal Saline) 1,000 mls @ 100 mls/hr IV ASDIRECTED [facility] Last Admin: 01/26/19 08:35 Dose: 100 mls/hr - Exam General: Alert, Oriented, Cooperative, No Acute Distress Lungs: Clear to Auscultation, Normal Respiratory Effort Cardiovascular: Regular Rate, Regular Rhythm GI/Abdominal Exam: Normal Bowel Sounds, Soft, No Distention, Tender (Left flank , guarding but no rigidity, or rebound tenderness.) Extremities: Pedal Edema (trace BLE) Sepsis Event Note - Evaluation Sepsis Screening Result: No Definite Risk - Problem List & Annotations (1) UTI (urinary tract infection) SNOMED Code(s): 49913266 Code(s): N39.0 - URINARY TRACT INFECTION, SITE NOT SPECIFIED Status: Acute Current Visit: Yes (2) Epigastric abdominal pain SNOMED Code(s): 36473483 Code(s): R10.13 - EPIGASTRIC PAIN Status: Resolved Current Visit: Yes (3) Fever SNOMED Code(s): 140818382 Code(s): R50.9 - FEVER, UNSPECIFIED Status: Resolved Current Visit: Yes (4) Alcohol dependence SNOMED Code(s): 27641272 Code(s): F10.20 - ALCOHOL DEPENDENCE, UNCOMPLICATED Status: Chronic Current Visit: Yes Qualifiers: Substance use status: uncomplicated Qualified Code(s): F10.20 - Alcohol dependence, uncomplicated (5) HLD (hyperlipidemia) SNOMED Code(s): 12510269 Code(s): E78.5 - HYPERLIPIDEMIA, UNSPECIFIED Status: Chronic Current Visit: Yes (6) HTN (hypertension) SNOMED Code(s): 64354548 Code(s): I10 - ESSENTIAL (PRIMARY) HYPERTENSION Status: Chronic Current Visit: Yes Qualifiers: Hypertension type: essential hypertension Qualified Code(s): I10 - Essential (primary) hypertension (7) Anemia SNOMED Code(s): 293986328 Code(s): D64.9 - ANEMIA, UNSPECIFIED Status: Chronic Current Visit: Yes Qualifiers: Anemia type: iron deficiency (8) Anxiety and depression SNOMED Code(s): 378159772 Code(s): F41.9 - ANXIETY DISORDER, UNSPECIFIED; F32.9 - MAJOR DEPRESSIVE DISORDER, SINGLE EPISODE, UNSPECIFIED Status: Chronic Current Visit: Yes - Problem List Review Problem List Initiated/Reviewed/Updated: Yes - My Orders Last 24 Hours: My Active Orders 01/27/19 11:00 Fluticasone Propionate [Flonase] 0 gm NASBOTH DAILY 01/28/19 06:00 BASIC METABOLIC PANEL,BMP [CHEM] Routine CBC WITH AUTO DIFF [HEME] Routine - Plan Plan:: Continue IV Levaquin, CBC down to 15 today, recheck tomorrow. PT/OT requires SBA, ambulates only 80 feet. Would benefit from continuing therapy. He had [facility] but they would not be able to go into his home at this time due to licensing issue. YANCY Nuñez discussed with patient group home placement and was going to take him on a tour today. Possibly discharge to [facility] on Wednesday.
[2019-01-27] MEDS: Simvastatin 20 MG Tab PO SCH (20:34)
[2019-01-28] MEDS: Acetaminophen 325 MG Tab PO PRN ×4 (00:56→18:05)
[2019-01-28] MEDS: Pantoprazole 40 MG Tab.CR PO SCH (05:24)
[2019-01-28] MEDS: Dutasteride 0.5 MG Cap PO SCH (09:18)
[2019-01-28] MEDS: Doxazosin 4 MG Tab PO SCH (09:18)
[2019-01-28] MEDS: Escitalopram 10 MG Tab PO SCH (09:19)
[2019-01-28] MEDS: Metoprolol Tartrate 100 MG Tab PO SCH ×2 (09:20→21:59)
[2019-01-28] MEDS: amLODIPine 10 MG Tab PO SCH (09:20)
[2019-01-28] MEDS: Multivitamins,Therapeutic Tab PO SCH (09:21)
[2019-01-28] MEDS: Fluticasone Propionate Nasal Spray 16 GM Bottle NASBOTH SCH (09:29)
--- NOTE | 2019-01-28 09:39 | PCM.PN ---
- General Info Date of Service: 01/28/19 Subjective Update: Patient feeling a little better today, walked about 50 feet last night with nursing. No fevers, chills, shortness of breath, nausea, vomiting or diarrhea. He is open to going to the skilled nursing for the winter to get stronger. Tentative plan to go on Wednesday. - Patient Data Vitals - Most Recent: Last Vital Signs Temp 97.1 F 01/28/19 04:00 Pulse 96 01/28/19 09:20 Resp 19 01/28/19 04:00 BP 142/96 H 01/28/19 09:20 Pulse Ox 96 01/28/19 04:00 Weight - Most Recent: 201 lb 14.4 oz I&O - Last 24 Hours: Intake & Output 01/27/19 01/28/19 01/28/19 22:59 06:59 14:59 Intake Total 50 30 Balance 50 30 Lab Results Last 24 Hours: Laboratory Results - last 24 hr 01/28/19 01/28/19 Range/Units 06:55 06:55 WBC 8.8 (4.5-12.0) X10-3/uL RBC 3.51 L (4.30-5.75) x10(6)uL Hgb 11.4 L (13.5-17.8) g/dL Hct 33.2 (30.0-51.3) % MCV 94.7 (80-96) fL MCH 32.4 (27.7-33.6) pg MCHC 34.2 (32.2-35.4) g/dL RDW 13.7 (11.5-15.5) % Plt Count 302 (125-369) X10(3)uL MPV 7.0 L (7.4-10.4) fL Neut % (Auto) 73.2 (46-82) % Lymph % (Auto) 11.9 L (13-37) % Tripp % (Auto) 12.7 H (4-12) % Eos % (Auto) 2 (1.0-5.0) % Baso % (Auto) 1 (0-2) % Neut # (Auto) 6.5 (1.6-8.3) # Lymph # (Auto) 1.0 (0.6-5.0) # Tripp # (Auto) 1.1 (0.0-1.3) # Eos # (Auto) 0.1 (0.0-0.8) # Baso # (Auto) 0.1 (0.0-0.2) # Sodium 137 (135-145) mmol/L Potassium 3.9 (3.5-5.3) mmol/L Chloride 101 (100-110) mmol/L Carbon Dioxide 24 (21-32) mmol/L BUN 15 (7-18) mg/dL Creatinine 0.9 (0.70-1.30) mg/dL Est Cr Clr Drug Dosing 71.87 mL/min Estimated GFR (MDRD) > 60 (>60) BUN/Creatinine Ratio 16.7 (9-20) Glucose 95 (80-116) mg/dL Calcium 9.0 (8.6-10.2) mg/dL Bharat Results Last 24 Hours: Microbiology 01/25/19 19:38 Aerobic Blood Culture - Preliminary Blood - Venous NO GROWTH AFTER 2 DAYS Anaerobic Blood Culture - Preliminary NO GROWTH AFTER 2 DAYS 01/25/19 20:43 Aerobic Blood Culture - Preliminary Blood - Venous - Lab Draw NO GROWTH AFTER 2 DAYS Anaerobic Blood Culture - Preliminary NO GROWTH AFTER 2 DAYS 01/25/19 20:28 Urine Culture - Final Urine, Midstream Escherichia Coli Med Orders - Current: Current Medications Acetaminophen (Tylenol) 650 mg PO Q4H PRN PRN Reason: analgesia/fever Last Admin: 01/28/19 05:27 Dose: 650 mg Amlodipine Besylate (Norvasc) 10 mg PO DAILY [facility] Last Admin: 01/28/19 09:20 Dose: 10 mg Docusate Sodium (Colace) 200 mg PO DAILY PRN PRN Reason: Constipation Doxazosin Mesylate (Cardura) 8 mg PO DAILY [facility] Last Admin: 01/28/19 09:18 Dose: 8 mg Dutasteride (Avodart) 0.5 mg PO DAILY [facility] Last Admin: 01/28/19 09:18 Dose: 0.5 mg Escitalopram Oxalate (Lexapro) 10 mg PO DAILY [facility] Last Admin: 01/28/19 09:19 Dose: 10 mg Fluticasone Propionate (Flonase) 0 gm NASBOTH DAILY [facility] Last Admin: 01/28/19 09:29 Dose: 1 unit Levofloxacin/Dextrose 750 mg/ (Premix) 150 mls @ 100 mls/hr IV Q24H [facility] Last Admin: 01/27/19 09:38 Dose: 100 mls/hr Lisinopril (Prinivil) 40 mg PO DAILY [facility] Last Admin: 01/28/19 09:20 Dose: 40 mg Magnesium Hydroxide (Milk Of Magnesia) 30 ml PO BID PRN PRN Reason: Constipation Metoprolol Tartrate (Lopressor) 100 mg PO BID [facility] Last Admin: 01/28/19 09:20 Dose: 100 mg Multivitamins (Thera) 1 each PO DAILY [facility] Last Admin: 01/28/19 09:21 Dose: 1 each Pantoprazole Sodium (Protonix) 40 mg PO DAILY@0600 [facility] Last Admin: 01/28/19 05:24 Dose: 40 mg Senna/Docusate Sodium (Senna Plus) 1 tab PO DAILY [facility] Last Admin: 01/28/19 09:24 Dose: Not Given Simvastatin (Zocor) 20 mg PO BEDTIME [facility] Last Admin: 01/27/19 20:34 Dose: 20 mg Discontinued Medications Acetaminophen (Tylenol Extra Strength) 1,000 mg PO ONETIME ONE Stop: 01/25/19 19:11 Last Admin: 01/25/19 19:18 Dose: 1,000 mg Sodium Chloride (Normal Saline) 1,000 mls @ 999 mls/hr IV .BOLUS ONE Stop: 01/25/19 20:27 Last Admin: 01/25/19 19:55 Dose: 999 mls/hr Ceftriaxone Sodium 1 gm/ (Sodium Chloride) 50 mls @ 200 mls/hr IV ONETIME ONE Stop: 01/25/19 20:53 Last Admin: 01/25/19 20:55 Dose: 200 mls/hr Azithromycin 500 mg/ Sodium (Chloride) 250 mls @ 250 mls/hr IV ONETIME ONE Stop: 01/25/19 21:40 Last Admin: 01/25/19 21:28 Dose: 250 mls/hr Sodium Chloride (Normal Saline) 1,000 mls @ 100 mls/hr IV ASDIRECTED [facility] Last Admin: 01/26/19 08:35 Dose: 100 mls/hr - Exam General: Alert, Oriented, Cooperative, No Acute Distress Lungs: Clear to Auscultation, Normal Respiratory Effort Cardiovascular: Regular Rate, Regular Rhythm GI/Abdominal Exam: Normal Bowel Sounds, Soft, Non-Tender, No Distention Extremities: Pedal Edema (trace) Sepsis Event Note - Evaluation Sepsis Screening Result: No Definite Risk Current Stage of Sepsis: Ruled Out Reason for Ruling Out Sepsis: Blood cultures negative. Vitals stable. - Problem List & Annotations (1) UTI (urinary tract infection) SNOMED Code(s): 91078746 Code(s): N39.0 - URINARY TRACT INFECTION, SITE NOT SPECIFIED Status: Acute Current Visit: Yes (2) Epigastric abdominal pain SNOMED Code(s): 12540318 Code(s): R10.13 - EPIGASTRIC PAIN Status: Resolved Current Visit: Yes (3) Fever SNOMED Code(s): 696295763 Code(s): R50.9 - FEVER, UNSPECIFIED Status: Resolved Current Visit: Yes (4) Alcohol dependence SNOMED Code(s): 50337867 Code(s): F10.20 - ALCOHOL DEPENDENCE, UNCOMPLICATED Status: Chronic Current Visit: Yes Qualifiers: Substance use status: uncomplicated Qualified Code(s): F10.20 - Alcohol dependence, uncomplicated (5) HLD (hyperlipidemia) SNOMED Code(s): 15898338 Code(s): E78.5 - HYPERLIPIDEMIA, UNSPECIFIED Status: Chronic Current Visit: Yes (6) HTN (hypertension) SNOMED Code(s): 23815019 Code(s): I10 - ESSENTIAL (PRIMARY) HYPERTENSION Status: Chronic Current Visit: Yes Qualifiers: Hypertension type: essential hypertension Qualified Code(s): I10 - Essential (primary) hypertension (7) Anemia SNOMED Code(s): 746352369 Code(s): D64.9 - ANEMIA, UNSPECIFIED Status: Chronic Current Visit: Yes Qualifiers: Anemia type: iron deficiency (8) Anxiety and depression SNOMED Code(s): 568770580 Code(s): F41.9 - ANXIETY DISORDER, UNSPECIFIED; F32.9 - MAJOR DEPRESSIVE DISORDER, SINGLE EPISODE, UNSPECIFIED Status: Chronic Current Visit: Yes - Problem List Review Problem List Initiated/Reviewed/Updated: Yes - My Orders Last 24 Hours: My Active Orders 01/27/19 11:00 Fluticasone Propionate [Flonase] 0 gm NASBOTH DAILY - Plan Plan:: Continue IV Levaquin day 3, CBC down to 8.8 today. UC grew E. coli sensitive to Levaquin but resistant to Ciprofloxacin. BC negative. PT/OT continuing. Flonase daily for nasal congestion. Possibly discharge to [facility] on Wednesday.
[2019-01-28] MEDS: Levofloxacin/Dextrose 5%-Water 750 MG in Premix Bag 1 BAG IV SCH (10:01)
[2019-01-28] MEDS: Sodium Chloride 0.9% 10 ML Syringe FLUSH PRN (18:07)
[2019-01-28] MEDS: Simvastatin 20 MG Tab PO SCH (21:59)
[2019-01-29] MEDS: Pantoprazole 40 MG Tab.CR PO SCH (05:12)
[2019-01-29] MEDS: Acetaminophen 325 MG Tab PO PRN ×3 (05:12→20:00)
[2019-01-29] MEDS: Sodium Chloride 0.9% 10 ML Syringe FLUSH PRN ×2 (09:00→11:39)
[2019-01-29] MEDS: Fluticasone Propionate Nasal Spray 16 GM Bottle NASBOTH SCH (09:11)
[2019-01-29] MEDS: Doxazosin 4 MG Tab PO SCH (09:13)
[2019-01-29] MEDS: Dutasteride 0.5 MG Cap PO SCH (09:13)
[2019-01-29] MEDS: Metoprolol Tartrate 100 MG Tab PO SCH ×2 (09:14→20:00)
[2019-01-29] MEDS: Escitalopram 10 MG Tab PO SCH (09:14)
[2019-01-29] MEDS: amLODIPine 10 MG Tab PO SCH (09:15)
[2019-01-29] MEDS: Multivitamins,Therapeutic Tab PO SCH (09:15)
[2019-01-29] MEDS: Levofloxacin/Dextrose 5%-Water 750 MG in Premix Bag 1 BAG IV SCH (09:21)
--- NOTE | 2019-01-29 11:35 | PCM.PN ---
- General Info Date of Service: 01/29/19 Subjective Update: Feeling little better today, having more loose stools so his Senna was held. Some moderate hip and shoulder pain, chronic. No nausea, vomiting. - Patient Data Vitals - Most Recent: Last Vital Signs Temp 98.1 F 01/29/19 08:00 Pulse 86 01/29/19 09:14 Resp 20 01/29/19 08:00 BP 145/90 H 01/29/19 09:15 Pulse Ox 95 01/29/19 08:00 Weight - Most Recent: 201 lb 14.4 oz I&O - Last 24 Hours: Intake & Output 01/28/19 01/29/19 01/29/19 22:59 06:59 14:59 Intake Total 350 300 Output Total 300 Balance 350 0 Bharat Results Last 24 Hours: Microbiology 01/25/19 20:43 Aerobic Blood Culture - Preliminary Blood - Venous - Lab Draw NO GROWTH AFTER 3 DAYS Anaerobic Blood Culture - Preliminary NO GROWTH AFTER 3 DAYS 01/25/19 19:38 Aerobic Blood Culture - Preliminary Blood - Venous NO GROWTH AFTER 3 DAYS Anaerobic Blood Culture - Preliminary NO GROWTH AFTER 3 DAYS Med Orders - Current: Current Medications Acetaminophen (Tylenol) 650 mg PO Q4H PRN PRN Reason: analgesia/fever Last Admin: 01/29/19 05:12 Dose: 650 mg Amlodipine Besylate (Norvasc) 10 mg PO DAILY [facility] Last Admin: 01/29/19 09:15 Dose: 10 mg Docusate Sodium (Colace) 200 mg PO DAILY PRN PRN Reason: Constipation Doxazosin Mesylate (Cardura) 8 mg PO DAILY [facility] Last Admin: 01/29/19 09:13 Dose: 8 mg Dutasteride (Avodart) 0.5 mg PO DAILY [facility] Last Admin: 01/29/19 09:13 Dose: 0.5 mg Escitalopram Oxalate (Lexapro) 10 mg PO DAILY [facility] Last Admin: 01/29/19 09:14 Dose: 10 mg Fluticasone Propionate (Flonase) 0 gm NASBOTH DAILY [facility] Last Admin: 01/29/19 09:11 Dose: 1 unit Levofloxacin/Dextrose 750 mg/ (Premix) 150 mls @ 100 mls/hr IV Q24H [facility] Last Admin: 01/29/19 09:21 Dose: 100 mls/hr Ibuprofen (Motrin) 200 mg PO Q6H PRN PRN Reason: Pain (moderate 4-6) Lisinopril (Prinivil) 40 mg PO DAILY [facility] Last Admin: 01/29/19 09:15 Dose: 40 mg Magnesium Hydroxide (Milk Of Magnesia) 30 ml PO BID PRN PRN Reason: Constipation Metoprolol Tartrate (Lopressor) 100 mg PO BID [facility] Last Admin: 01/29/19 09:14 Dose: 100 mg Multivitamins (Thera) 1 each PO DAILY [facility] Last Admin: 01/29/19 09:15 Dose: 1 each Pantoprazole Sodium (Protonix) 40 mg PO DAILY@0600 [facility] Last Admin: 01/29/19 05:12 Dose: 40 mg Saccharomyces Boulardii (Florastor) 250 mg PO DAILY [facility] Senna/Docusate Sodium (Senna Plus) 1 tab PO DAILY [facility] Last Admin: 01/29/19 09:16 Dose: Not Given Simvastatin (Zocor) 20 mg PO BEDTIME [facility] Last Admin: 01/28/19 21:59 Dose: 20 mg Sodium Chloride (Saline Flush) 10 ml FLUSH ASDIRECTED PRN PRN Reason: saline lock flush Last Admin: 01/28/19 18:07 Dose: 10 ml Discontinued Medications Acetaminophen (Tylenol Extra Strength) 1,000 mg PO ONETIME ONE Stop: 01/25/19 19:11 Last Admin: 01/25/19 19:18 Dose: 1,000 mg Sodium Chloride (Normal Saline) 1,000 mls @ 999 mls/hr IV .BOLUS ONE Stop: 01/25/19 20:27 Last Admin: 01/25/19 19:55 Dose: 999 mls/hr Ceftriaxone Sodium 1 gm/ (Sodium Chloride) 50 mls @ 200 mls/hr IV ONETIME ONE Stop: 01/25/19 20:53 Last Admin: 01/25/19 20:55 Dose: 200 mls/hr Azithromycin 500 mg/ Sodium (Chloride) 250 mls @ 250 mls/hr IV ONETIME ONE Stop: 01/25/19 21:40 Last Admin: 01/25/19 21:28 Dose: 250 mls/hr Sodium Chloride (Normal Saline) 1,000 mls @ 100 mls/hr IV ASDIRECTED [facility] Last Admin: 01/26/19 08:35 Dose: 100 mls/hr - Exam General: Alert, Oriented, Cooperative, No Acute Distress Lungs: Clear to Auscultation, Normal Respiratory Effort Cardiovascular: Regular Rate, Regular Rhythm GI/Abdominal Exam: Normal Bowel Sounds, Soft, Non-Tender, No Distention Extremities: Pedal Edema (trace) Sepsis Event Note - Evaluation Sepsis Screening Result: No Definite Risk - Problem List & Annotations (1) UTI (urinary tract infection) SNOMED Code(s): 56645237 Code(s): N39.0 - URINARY TRACT INFECTION, SITE NOT SPECIFIED Status: Acute Current Visit: Yes (2) Epigastric abdominal pain SNOMED Code(s): 27310803 Code(s): R10.13 - EPIGASTRIC PAIN Status: Resolved Current Visit: Yes (3) Fever SNOMED Code(s): 418845187 Code(s): R50.9 - FEVER, UNSPECIFIED Status: Resolved Current Visit: Yes (4) Alcohol dependence SNOMED Code(s): 94320350 Code(s): F10.20 - ALCOHOL DEPENDENCE, UNCOMPLICATED Status: Chronic Current Visit: Yes Qualifiers: Substance use status: uncomplicated Qualified Code(s): F10.20 - Alcohol dependence, uncomplicated (5) HLD (hyperlipidemia) SNOMED Code(s): 10137788 Code(s): E78.5 - HYPERLIPIDEMIA, UNSPECIFIED Status: Chronic Current Visit: Yes (6) HTN (hypertension) SNOMED Code(s): 19117292 Code(s): I10 - ESSENTIAL (PRIMARY) HYPERTENSION Status: Chronic Current Visit: Yes Qualifiers: Hypertension type: essential hypertension Qualified Code(s): I10 - Essential (primary) hypertension (7) Anemia SNOMED Code(s): 102178684 Code(s): D64.9 - ANEMIA, UNSPECIFIED Status: Chronic Current Visit: Yes Qualifiers: Anemia type: iron deficiency (8) Anxiety and depression SNOMED Code(s): 202038286 Code(s): F41.9 - ANXIETY DISORDER, UNSPECIFIED; F32.9 - MAJOR DEPRESSIVE DISORDER, SINGLE EPISODE, UNSPECIFIED Status: Chronic Current Visit: Yes - Problem List Review Problem List Initiated/Reviewed/Updated: Yes - My Orders Last 24 Hours: My Active Orders 01/28/19 16:49 Sodium Chloride 0.9% [Saline Flush] 10 ml FLUSH ASDIRECTED PRN 01/29/19 10:15 Saccharomyces Boulardii [Florastor] 250 mg PO DAILY 01/29/19 11:20 Ibuprofen [Motrin] 200 mg PO Q6H PRN - Plan Plan:: Continue IV Levaquin day 4, UC grew E. coli sensitive to Levaquin but resistant to Ciprofloxacin. BC negative. PT/OT continuing. TEDs BLE for edema. Ibuprofen prn for joint pains. Flonase daily for nasal congestion. Possibly discharge [facility] on Wednesday/Wednesday.
[2019-01-29] MEDS: Saccharomyces Boulardii (Probiotic) 250 MG Cap PO SCH (11:38)
[2019-01-29] MEDS: Ibuprofen 200 MG Tab PO PRN (16:40)
[2019-01-29] MEDS: Simvastatin 20 MG Tab PO SCH (20:00)
[2019-01-30] MEDS: Pantoprazole 40 MG Tab.CR PO SCH (05:05)
[2019-01-30] MEDS: Acetaminophen 325 MG Tab PO PRN ×2 (05:44→09:40)
[2019-01-30] MEDS: Doxazosin 4 MG Tab PO SCH (09:18)
[2019-01-30] MEDS: amLODIPine 10 MG Tab PO SCH (09:19)
[2019-01-30] MEDS: Metoprolol Tartrate 100 MG Tab PO SCH (09:19)
[2019-01-30] MEDS: Multivitamins,Therapeutic Tab PO SCH (09:19)
[2019-01-30] MEDS: Dutasteride 0.5 MG Cap PO SCH (09:19)
[2019-01-30] MEDS: Escitalopram 10 MG Tab PO SCH (09:19)
[2019-01-30] MEDS: Fluticasone Propionate Nasal Spray 16 GM Bottle NASBOTH SCH (09:20)
[2019-01-30] MEDS: Saccharomyces Boulardii (Probiotic) 250 MG Cap PO SCH (09:20)
[2019-01-30] MEDS: Ibuprofen 200 MG Tab PO PRN (09:39)
[2019-01-30] MEDS: Sodium Chloride 0.9% 10 ML Syringe FLUSH PRN (09:43)
[2019-01-30] MEDS: Levofloxacin/Dextrose 5%-Water 750 MG in Premix Bag 1 BAG IV SCH (09:43)
[2019-01-30] MEDS ORDERED: Tuberculin, PPD 5 Units/0.1 ML 1 ML MDV IDERM ONE (10:07)
--- NOTE | 2019-01-31 10:31 | PCM.DCSUM1 ---
Discharge Summary - Hospital Course HPI Initial Comments: Mr. Sidhu is a 68-year-old male admitted yesterday because of pain. He complained epigastric pain that is intermittent in nature moderate to severe in intensity, with no radiation. Sudden onset. He also complains of burning micturition, frequency and was found a fever. 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 He is also reported to drink 3-4 beers of alcohol daily. Diagnosis: Stroke: No - Discharge Data Discharge Date: 01/30/19 Discharge Disposition: DC/Tfer to [facility] Condition: Stable - Referral to Home Health Primary Care Physician: PCP None - Discharge Diagnosis/Problem(s) (1) UTI (urinary tract infection) SNOMED Code(s): 03310668 ICD Code: N39.0 - URINARY TRACT INFECTION, SITE NOT SPECIFIED Status: Acute Problem Details: improving (2) Epigastric abdominal pain SNOMED Code(s): 71247462 ICD Code: R10.13 - EPIGASTRIC PAIN Status: Resolved (3) Fever SNOMED Code(s): 559898924 ICD Code: R50.9 - FEVER, UNSPECIFIED Status: Resolved (4) Alcohol dependence SNOMED Code(s): 37013172 ICD Code: F10.20 - ALCOHOL DEPENDENCE, UNCOMPLICATED Status: Chronic Qualifiers: Substance use status: uncomplicated Qualified Code(s): F10.20 - Alcohol dependence, uncomplicated (5) HLD (hyperlipidemia) SNOMED Code(s): 57522587 ICD Code: E78.5 - HYPERLIPIDEMIA, UNSPECIFIED Status: Chronic (6) HTN (hypertension) SNOMED Code(s): 10821899 ICD Code: I10 - ESSENTIAL (PRIMARY) HYPERTENSION Status: Chronic Qualifiers: Hypertension type: essential hypertension Qualified Code(s): I10 - Essential (primary) hypertension (7) Anemia SNOMED Code(s): 087936461 ICD Code: D64.9 - ANEMIA, UNSPECIFIED Status: Chronic Qualifiers: Anemia type: iron deficiency (8) Anxiety and depression SNOMED Code(s): 514865379 ICD Code: F41.9 - ANXIETY DISORDER, UNSPECIFIED; F32.9 - MAJOR DEPRESSIVE DISORDER, SINGLE EPISODE, UNSPECIFIED Status: Chronic - Patient Summary/Data Consults: Consultations 01/26/19 08:57 OT Evaluation and Treatment [CONS] Routine Please Evaluate and Treat. OT Reason for Consult: ADL's This query below is only for informational purposes and is not editable. Admission Diagnosis/Problem: UTI, Urinary tract infectious disease PT Evaluation and Treatment [CONS] Routine Please Evaluate and Treat. PT Reason for Consult: Ambulation This query below is only for informational purposes and is not editable. Admission Diagnosis/Problem: UTI, Urinary tract infectious disease Hospital Course: Patient was started on Levofloxacin 750 daily, white count steadily came down until it had normalized. Urine culture: E coli sensitive to Levofloxacin but resistant to Ciprofloxacin. Daily improved in strength and endurance. He was having some loose stools which held his stool softeners and will discharge on [place] standard PRN orders for constipation. He also complained of nasal congestion but no signs of infection, started on Flonase daily. Chronic shoulder and right hip and bilateral knee pain, started low dose Ibuprofen as needed with Tylenol. He had x-rays at [place] in November, referred to Orthopedics but appointment in Feb was cancelled due to scheduling conflict with his daughter as she is his transportation. At this time it has not been rescheduled and would need to be done when he goes to the home. Walks approximately 80 feet, would benefit from senior living placement and improve social isolation especially during the winter. Discharge to [facility] today. - Patient Instructions Diet: Regular Diet as Tolerated Activity: As Tolerated, Full Weight Bearing Showering/Bathing: June Shower Notify Provider of: Fever, Increased Pain, Swelling and Redness, Nausea and/or Vomiting Other/Special Instructions: Follow up with Dr Iyer in [place] in 1-2 weeks. - Discharge Plan *PRESCRIPTION DRUG MONITORING PROGRAM REVIEWED*: Not Applicable *COPY OF PRESCRIPTION DRUG MONITORING REPORT IN PATIENT FAM: Not Applicable Prescriptions/Med Rec: Acetaminophen [Tylenol] 650 mg PO Q4H PRN #60 tablet PRN Reason: analgesia/fever amLODIPine [Norvasc] 10 mg PO DAILY 30 Days #30 tablet Ascorbic Acid/Ascorbate Sodium [Vitamin C 250 mg Tablet Chew] 250 mg PO DAILY 30 Days #30 tab.chew Docusate Sodium [Colace] 200 mg PO DAILY PRN 30 Days #30 cap PRN Reason: Constipation Doxazosin [Cardura] 8 mg PO DAILY 30 Days #30 tablet Dutasteride 0.5 mg PO DAILY 30 Days #30 capsule Escitalopram Oxalate 10 mg PO DAILY 30 Days #30 tablet Ferrous Sulfate 325 mg PO DAILY 30 Days #30 tablet Ibuprofen [Motrin] 200 mg PO Q6H PRN 30 Days #60 tablet PRN Reason: Pain (Moderate 4-6) levoFLOXacin [Levaquin] 500 mg PO DAILY 2 Days #2 tab lisinopriL [Lisinopril] 40 mg PO DAILY 30 Days #30 tablet Magnesium Hydroxide [Milk of Magnesia] 30 ml PO BID PRN 30 Days #30 cup PRN Reason: Constipation Metoprolol Tartrate 100 mg PO BID 30 Days #60 tablet Multivitamin/Iron/Folic Acid [Centrum Adults Tablet] 1 each PO DAILY 30 Days # 30 tablet Omeprazole 20 mg PO DAILY 30 Days #30 capsule. Sennochris/Docusate Sodium [Senna-S] 1 tab PO DAILY PRN 30 Days #30 tablet PRN Reason: Constipation Simvastatin 20 mg PO BEDTIME 30 Days #30 tablet Home Medications: Home Meds Acetaminophen [Tylenol] 650 mg PO Q4H PRN #60 tablet 01/30/19 [Rx] Ascorbic Acid/Ascorbate Sodium [Vitamin C 250 mg Tablet Chew] 250 mg PO DAILY 30 Days #30 tab.chew 01/30/19 [Rx] Docusate Sodium [Colace] 200 mg PO DAILY PRN 30 Days #30 cap 01/30/19 [Rx] Doxazosin [Cardura] 8 mg PO DAILY 30 Days #30 tablet 01/30/19 [Rx] Dutasteride 0.5 mg PO DAILY 30 Days #30 capsule 01/30/19 [Rx] Escitalopram Oxalate 10 mg PO DAILY 30 Days #30 tablet 01/30/19 [Rx] Ferrous Sulfate 325 mg PO DAILY 30 Days #30 tablet 01/30/19 [Rx] Fluticasone Propionate [Flonase] 0 gm NASBOTH DAILY bottle 01/30/19 [Rx] Ibuprofen [Motrin] 200 mg PO Q6H PRN 30 Days #60 tablet 01/30/19 [Rx] Magnesium Hydroxide [Milk of Magnesia] 30 ml PO BID PRN 30 Days #30 cup [Rx] Metoprolol Tartrate 100 mg PO BID 30 Days #60 tablet 01/30/19 [Rx] Multivitamin/Iron/Folic Acid [Centrum Adults Tablet] 1 each PO DAILY 30 Days # 30 tablet 01/30/19 [Rx] Omeprazole 20 mg PO DAILY 30 Days #30 capsule. 01/30/19 [Rx] Sennosides/Docusate Sodium [Senna-S] 1 tab PO DAILY PRN 30 Days #30 tablet 01/30 [Rx] Simvastatin 20 mg PO BEDTIME 30 Days #30 tablet 01/30/19 [Rx] amLODIPine [Norvasc] 10 mg PO DAILY 30 Days #30 tablet 01/30/19 [Rx] levoFLOXacin [Levaquin] 500 mg PO DAILY 2 Days #2 tab 01/30/19 [Rx] lisinopriL [Lisinopril] 40 mg PO DAILY 30 Days #30 tablet 01/30/19 [Rx] Forms: ED Department Discharge Referrals: Marge Iyer MD [Physician] - - Discharge Summary/Plan Comment DC Time >30 min.: Yes - Patient Data Vitals - Most Recent: Last Vital Signs Temp 97.7 F 01/30/19 07:40 Pulse 77 01/30/19 09:19 Resp 20 01/30/19 07:40 BP 137/95 H 01/30/19 09:19 Pulse Ox 96 01/30/19 07:40 Weight - Most Recent: 201 lb 14.4 oz KEN Results - Last 24 hrs: Microbiology 01/25/19 19:38 Aerobic Blood Culture - Final Blood - Venous NO GROWTH AFTER 5 DAYS Anaerobic Blood Culture - Final NO GROWTH AFTER 5 DAYS 01/25/19 20:43 Aerobic Blood Culture - Final Blood - Venous - Lab Draw NO GROWTH AFTER 5 DAYS Anaerobic Blood Culture - Final NO GROWTH AFTER 5 DAYS Med Orders - Current: Current Medications Discontinued Medications Acetaminophen (Tylenol Extra Strength) 1,000 mg PO ONETIME ONE Stop: 01/25/19 19:11 Last Admin: 01/25/19 19:18 Dose: 1,000 mg Acetaminophen (Tylenol) 650 mg PO Q4H PRN PRN Reason: analgesia/fever Last Admin: 01/30/19 09:40 Dose: 650 mg Amlodipine Besylate (Norvasc) 10 mg PO DAILY [facility] Last Admin: 01/30/19 09:19 Dose: 10 mg Docusate Sodium (Colace) 200 mg PO DAILY PRN PRN Reason: Constipation Doxazosin Mesylate (Cardura) 8 mg PO DAILY [facility] Last Admin: 01/30/19 09:18 Dose: 8 mg Dutasteride (Avodart) 0.5 mg PO DAILY [facility] Last Admin: 01/30/19 09:19 Dose: 0.5 mg Escitalopram Oxalate (Lexapro) 10 mg PO DAILY [facility] Last Admin: 01/30/19 09:19 Dose: 10 mg Fluticasone Propionate (Flonase) 0 gm NASBOTH DAILY [facility] Last Admin: 01/30/19 09:20 Dose: 1 unit Sodium Chloride (Normal Saline) 1,000 mls @ 999 mls/hr IV .BOLUS ONE Stop: 01/25/19 20:27 Last Admin: 01/25/19 19:55 Dose: 999 mls/hr Ceftriaxone Sodium 1 gm/ (Sodium Chloride) 50 mls @ 200 mls/hr IV ONETIME ONE Stop: 01/25/19 20:53 Last Admin: 01/25/19 20:55 Dose: 200 mls/hr Azithromycin 500 mg/ Sodium (Chloride) 250 mls @ 250 mls/hr IV ONETIME ONE Stop: 01/25/19 21:40 Last Admin: 01/25/19 21:28 Dose: 250 mls/hr Sodium Chloride (Normal Saline) 1,000 mls @ 100 mls/hr IV ASDIRECTED [facility] Last Admin: 01/26/19 08:35 Dose: 100 mls/hr Levofloxacin/Dextrose 750 mg/ (Premix) 150 mls @ 100 mls/hr IV Q24H [facility] Last Admin: 01/30/19 09:43 Dose: 100 mls/hr Ibuprofen (Motrin) 200 mg PO Q6H PRN PRN Reason: Pain (moderate 4-6) Last Admin: 01/30/19 09:39 Dose: 200 mg Lisinopril (Prinivil) 40 mg PO DAILY [facility] Last Admin: 01/30/19 09:20 Dose: 40 mg Magnesium Hydroxide (Milk Of Magnesia) 30 ml PO BID PRN PRN Reason: Constipation Metoprolol Tartrate (Lopressor) 100 mg PO BID [facility] Last Admin: 01/30/19 09:19 Dose: 100 mg Multivitamins (Thera) 1 each PO DAILY [facility] Last Admin: 01/30/19 09:19 Dose: 1 each Pantoprazole Sodium (Protonix) 40 mg PO DAILY@0600 [facility] Last Admin: 01/30/19 05:05 Dose: 40 mg Saccharomyces Boulardii (Florastor) 250 mg PO DAILY [facility] Last Admin: 01/30/19 09:20 Dose: 250 mg Senna/Docusate Sodium (Senna Plus) 1 tab PO DAILY [facility] Last Admin: 01/30/19 09:18 Dose: 1 tab Simvastatin (Zocor) 20 mg PO BEDTIME [facility] Last Admin: 01/29/19 20:00 Dose: 20 mg Sodium Chloride (Saline Flush) 10 ml FLUSH ASDIRECTED PRN PRN Reason: saline lock flush Last Admin: 01/30/19 09:43 Dose: 10 ml Tuberculin PPD (Aplisol) 5 unit IDERM ONETIME ONE Stop: 01/30/19 10:08 Last Admin: 01/30/19 10:50 Dose: 5 unit - Exam General: Reports: Alert, Oriented, Cooperative, No Acute Distress Lungs: Reports: Clear to Auscultation, Normal Respiratory Effort Cardiovascular: Reports: Regular Rate, Regular Rhythm GI/Abdominal Exam: Normal Bowel Sounds, Soft, Non-Tender, No Distention Extremities: Pedal Edema (trace)
== END 2019-01-30 13:10 | DRG 690 ==
LOC: FB.ED 18:55 → FB.MS 21:14
PROVIDERS: ADMIT Family Medicine; ATTEND Family Medicine
DX: N39.0 Urinary tract infection, site not specified (principal); M17.0 Bilateral primary osteoarthritis of knee; G91.9 Hydrocephalus, unspecified; I10 Essential (primary) hypertension; D64.9 Anemia, unspecified; E78.5 Hyperlipidemia, unspecified; F32.9 Major depressive disorder, single episode, unspecified; F41.1 Generalized anxiety disorder; F10.20 Alcohol dependence, uncomplicated; B96.20 Unspecified Escherichia coli [E. coli] as the cause of diseases classified elsewhere; K59.00 Constipation, unspecified; G89.29 Other chronic pain; M25.551 Pain in right hip; M25.519 Pain in unspecified shoulder; R32 Unspecified urinary incontinence; N40.0 Benign prostatic hyperplasia without lower urinary tract symptoms; M54.9 Dorsalgia, unspecified; R41.3 Other amnesia; Z79.82 Long term (current) use of aspirin; Z79.899 Other long term (current) drug therapy; Z88.0 Allergy status to penicillin; Z86.73 Personal history of transient ischemic attack (TIA), and cerebral infarction without residual deficits; Z86.010 Personal history of colon polyps; Z87.442 Personal history of urinary calculi
CPT/HCPCS: 36415; 71046; 74019; 80048; 80053; 81001; 83690; 84484; 85025; 86140; 86580; 87040; 87086; 87088; 87186; 87804; 87804-59; 93005; 93010; 94760; 96374; 97161-GP; 97165-GO; 97530-GO; 97530-GP; 97535-GO; 97542-GO; 99284; 99285-25; A9270-GY; G0480; J0456; J0696; J1956; J7030; J7050

== ENCOUNTER 2019-06-12 12:23 | Emergency (ER) | payer MEDICARE ==
[2019-06-12] MEDS ORDERED: Sodium Chloride 0.9% 10 ML Syringe FLUSH PRN (12:44)
--- NOTE | 2019-06-12 12:52 | EDM.PDOC ---
ED HPI GENERAL MEDICAL PROBLEM - General Chief Complaint: Respiratory Problem Stated Complaint: SOB, ALOC Time Seen by Provider: 06/12/19 12:47 Source of Information: Reports: Patient, Fpc Records History Limitations: Reports: No Limitations - History of Present Illness INITIAL COMMENTS - FREE TEXT/NARRATIVE: Presents to the ED with SOB and hypoxia x 2 days, NH RN noted confusion today. Patient is alert and answers questions appropriately.in the ED. He says he has had a cough, but does not currently feel SOB. Also complains of left anterior chest pain only with cough. Denies F/C, N/V, or abdominal pain. PMHx significant for Anemia, GERD, HTN, Hyperlipidemia, Depression, Anxiety, OA, and hypothyroidism. Duration: Day(s): (2) Severity: Mild - Related Data Allergies Allergy/AdvReac Type Severity Reaction Status Date / Time Penicillins Allergy Rash Verified 06/12/19 14:54 Home Meds: Home Meds Acetaminophen [Tylenol] 650 mg PO Q4H PRN #60 tablet 01/30/19 [Rx] Doxazosin [Cardura] 8 mg PO DAILY 30 Days #30 tablet 01/30/19 [Rx] Dutasteride 0.5 mg PO DAILY 30 Days #30 capsule 01/30/19 [Rx] Escitalopram Oxalate 10 mg PO DAILY 30 Days #30 tablet 01/30/19 [Rx] Ferrous Sulfate 325 mg PO DAILY 30 Days #30 tablet 01/30/19 [Rx] Ibuprofen [Motrin] 200 mg PO Q6H PRN 30 Days #60 tablet 01/30/19 [Rx] Magnesium Hydroxide [Milk of Magnesia] 30 ml PO BID PRN 30 Days #30 cup [Rx] Metoprolol Tartrate 100 mg PO BID 30 Days #60 tablet 01/30/19 [Rx] Multivitamin/Iron/Folic Acid [Centrum Adults Tablet] 1 each PO DAILY 30 Days # 30 tablet 01/30/19 [Rx] Omeprazole 20 mg PO DAILY 30 Days #30 capsule. 01/30/19 [Rx] Simvastatin 20 mg PO BEDTIME 30 Days #30 tablet 01/30/19 [Rx] levoFLOXacin [Levaquin] 500 mg PO DAILY 2 Days #2 tab 01/30/19 [Rx] lisinopriL [Lisinopril] 40 mg PO DAILY 30 Days #30 tablet 01/30/19 [Rx] Acetaminophen 1,000 mg PO TID 06/12/19 [History] Ascorbic Acid [Vitamin C 250 mg Tablet Chew] 250 mg PO DAILY 06/12/19 [History] Bisacodyl [Gentle Laxative] 10 mg RECTAL ASDIRECTED PRN 06/12/19 [History] Cholecalciferol (Vitamin D3) [Vitamin D3] 2,000 unit PO DAILY 06/12/19 [History] Codeine Phosphate/Guaifenesin [Guaifenesin AC Cough Syrup] 10 ml PO Q4HR PRN [History] Docusate Sodium [Colace] 10 mg PO DAILY PRN 06/12/19 [History] Eucalyptus/Menthol [Cough Drops] 1 lozenge PO ASDIRECTED PRN 06/12/19 [History] Fluticasone Propionate [Flonase] 1 spray NASBOTH DAILY 06/12/19 [History] Hydrocortisone [Hydrocortisone 2.5% Crm] 1 applic TOP BID PRN 06/12/19 [History] Levothyroxine 25 mcg PO DAILY 06/12/19 [History] Loperamide [Imodium] 2 mg PO ASDIRECTED PRN 06/12/19 [History] Magnesium Hydroxide [Milk of Magnesia] 30 ml PO DAILY 06/12/19 [History] Sennosides/Docusate Sodium [Senna-S] 1 tab PO DAILY 06/12/19 [History] Sodium Chloride 0.9% [Saline Flush] 10 ml FLUSH ASDIRECTED PRN syringe [Rx] amLODIPine [Norvasc] 5 mg PO BEDTIME 06/12/19 [History] buPROPion [Wellbutrin SR] 150 mg PO DAILY 06/12/19 [History] hydroCHLOROthiazide [Hydrochlorothiazide] 25 mg PO DAILY 06/12/19 [History] predniSONE 40 mg PO DAILY #8 tab 06/12/19 [Rx] Past Medical History HEENT History: Reports: Other (See Below) Other HEENT History: hydrocephalus Cardiovascular History: Reports: Hypertension. Denies: CAD Gastrointestinal History: Reports: Colon Polyp, GI Bleed, Other (See Below) Other Gastrointestinal History: gi bleed 1990 Genitourinary History: Reports: BPH, Urinary Incontinence Musculoskeletal History: Reports: Back Pain, Chronic, Osteoarthritis Neurological History: Reports: Concussion, CVA, Other (See Below) Other Neuro History: Lost some use of L arm Psychiatric History: Reports: Depression Hematologic History: Reports: Blood Transfusion(s) - Infectious Disease History Infectious Disease History: Reports: Chicken Pox, Measles, Mumps, Shingles - Past Surgical History Cardiovascular Surgical History: Reports: None GI Surgical History: Reports: Colonoscopy, Polypectomy Other GI Surgeries/Procedures: polypectomy 2013 Male Surgical History: Reports: Circumcision, Renal Calculus Neurological Surgical History: Reports: None Musculoskeletal Surgical History: Reports: None Social & Family History - Family History Family Medical History: Noncontributory Cardiac: Reports: Hypertension, [place] Respiratory: Reports: Interstitial Lung Disease - Caffeine Use Caffeine Use: Reports: Coffee Other Caffeine Use: 1-2 cups a day ED ROS GENERAL - Review of Systems Review Of Systems: Comprehensive ROS is negative, except as noted in HPI. ED EXAM, GENERAL - Physical Exam Exam: See Below Exam Limited By: No Limitations General Appearance: Alert, WD/WN, No Apparent Distress Throat/Mouth: No Airway Compromise Head: Atraumatic, Normocephalic Neck: Full Range of Motion Respiratory/Chest: No Respiratory Distress, Lungs Clear, Normal Breath Sounds, No Accessory Muscle Use Cardiovascular: Regular Rate, Rhythm, No Murmur GI/Abdominal: Normal Bowel Sounds, Soft, Non-Tender, No Distention Back Exam: Full Range of Motion Extremities: Pedal Edema Neurological: Alert, Oriented (x3), Normal Cognition Skin Exam: Warm, Dry, Intact EKG INTERPRETATION EKG Date: 06/12/19 Time: 13:35 Rhythm: NSR Rate (Beats/Min): 59 [place]: Normal P-Wave: Present QRS: Normal ST-T: Other (inverted t wave III) QT: Normal Comparison: No Change (01/25/19) Course - Vital Signs Last Recorded V/S: Last Vital Signs Temp 37.2 C 06/12/19 12:25 Pulse 73 06/12/19 12:25 Resp 18 06/12/19 12:25 BP 116/68 06/12/19 12:25 Pulse Ox 95 06/12/19 12:25 - Orders/Labs/Meds Orders: Active Orders 24 hr Category Date Time Status EKG Documentation Completion [RC] ASDIRECTED Care 06/12/19 12:40 Active Ang Chest [CT] Stat Exams 06/12/19 13:45 Taken Chest 1V Frontal [CR] Stat Exams 06/12/19 12:39 Taken CORONAVIRUS COVID-19 PCR PHL Stat Lab 06/12/19 12:41 Ordered CULTURE BLOOD [BC] Urgent Lab 06/12/19 13:00 Received CULTURE BLOOD [BC] Urgent Lab 06/12/19 13:05 Received UA W/MICROSCOPIC [URIN] Stat Lab 06/12/19 12:39 Ordered Sodium Chloride 0.9% [Saline Flush] Med 06/12/19 12:44 Active 10 ml FLUSH ASDIRECTED PRN Blood Culture x2 Reflex Set [OM.PC] Urgent Oth 06/12/19 12:43 Ordered Isolation [COMM] Routine Oth 06/12/19 12:41 Ordered Saline Lock Insert [OM.PC] Routine Oth 06/12/19 12:44 Ordered EKG 12 Lead [EK] Stat Ther 06/12/19 12:39 Ordered Medication Orders Sodium Chloride (Saline Flush) 10 ml FLUSH ASDIRECTED PRN PRN Reason: Keep Vein Open Last Admin: 06/12/19 13:30 Dose: 10 ml Labs: Laboratory Tests 06/12/19 06/12/19 06/12/19 Range/Units 12:30 13:00 13:00 WBC 8.8 (4.5-12.0) X10-3/uL RBC 4.04 L (4.30-5.75) x10(6)uL Hgb 12.8 L (13.5-17.8) g/dL Hct 38.9 (30.0-51.3) % MCV 96.3 H (80-96) fL MCH 31.8 (27.7-33.6) pg MCHC 33.1 (32.2-35.4) g/dL RDW 13.9 (11.5-15.5) % Plt Count 241 (125-369) X10(3)uL MPV 7.8 (7.4-10.4) fL Neut % (Auto) 65.9 (46-82) % Lymph % (Auto) 16.5 (13-37) % [place] % (Auto) 10.8 (4-12) % Eos % (Auto) 6 H (1.0-5.0) % Baso % (Auto) 1 (0-2) % Neut # (Auto) 5.7 (1.6-8.3) # Lymph # (Auto) 1.5 (0.6-5.0) # [place] # (Auto) 1.0 (0.0-1.3) # Eos # (Auto) 0.5 (0.0-0.8) # Baso # (Auto) 0.1 (0.0-0.2) # PT 10.5 (9.0-11.1) sec INR 0.97 L (1.00-1.24) APTT 23.4 L (24.4-33.2) SECONDS D-Dimer, Quantitative 0.89 H (0.0-0.59) mg/LFEU POC VBG pH 7.33 (7.31-7.41) POC VBG pCO2 54.8 H (41-51) mmHG POC VBG HCO3 29.0 H (23-28) mmol/L POC VBG Total CO2 31 H (24-29) mmol/L POC VBG Base Excess 3 (-2-3) mmol/L Sodium (135-145) mmol/L Potassium (3.5-5.3) mmol/L Chloride (100-110) mmol/L Carbon Dioxide (21-32) mmol/L BUN (7-18) mg/dL Creatinine (0.70-1.30) mg/dL Est Cr Clr Drug Dosing Estimated GFR (MDRD) (>60) BUN/Creatinine Ratio (9-20) Glucose (80-116) mg/dL Lactic Acid (0.4-2.0) mmol/L Calcium (8.6-10.2) mg/dL Total Bilirubin (0.1-1.3) mg/dL AST (5-25) IU/L ALT (12-36) U/L Alkaline Phosphatase (56-112) IU/L Troponin I (4.0-60.3) pg/mL NT-Pro-B Natriuret Pep (<=125) pg/mL Total Protein (6.0-8.0) g/dL Albumin (3.2-4.6) g/dL Globulin g/dL Albumin/Globulin Ratio 06/12/19 06/12/19 06/12/19 Range/Units 13:00 13:00 13:00 WBC (4.5-12.0) X10-3/uL RBC (4.30-5.75) x10(6)uL Hgb (13.5-17.8) g/dL Hct (30.0-51.3) % MCV (80-96) fL MCH (27.7-33.6) pg MCHC (32.2-35.4) g/dL RDW (11.5-15.5) % Plt Count (125-369) X10(3)uL MPV (7.4-10.4) fL Neut % (Auto) (46-82) % Lymph % (Auto) (13-37) % [place] % (Auto) (4-12) % Eos % (Auto) (1.0-5.0) % Baso % (Auto) (0-2) % Neut # (Auto) (1.6-8.3) # Lymph # (Auto) (0.6-5.0) # [place] # (Auto) (0.0-1.3) # Eos # (Auto) (0.0-0.8) # Baso # (Auto) (0.0-0.2) # PT (9.0-11.1) sec INR (1.00-1.24) APTT (24.4-33.2) SECONDS D-Dimer, Quantitative (0.0-0.59) mg/LFEU POC VBG pH (7.31-7.41) POC VBG pCO2 (41-51) mmHG POC VBG HCO3 (23-28) mmol/L POC VBG Total CO2 (24-29) mmol/L POC VBG Base Excess (-2-3) mmol/L Sodium 141 (135-145) mmol/L Potassium 4.1 (3.5-5.3) mmol/L Chloride 105 (100-110) mmol/L Carbon Dioxide 29 (21-32) mmol/L BUN 29 H (7-18) mg/dL Creatinine 1.2 (0.70-1.30) mg/dL Est Cr Clr Drug Dosing TNP Estimated GFR (MDRD) > 60 (>60) BUN/Creatinine Ratio 24.2 H (9-20) Glucose 102 (80-116) mg/dL Lactic Acid 0.9 (0.4-2.0) mmol/L Calcium 8.7 (8.6-10.2) mg/dL Total Bilirubin 0.3 (0.1-1.3) mg/dL AST 19 (5-25) IU/L ALT 33 D (12-36) U/L Alkaline Phosphatase 71 (56-112) IU/L Troponin I 6.4 (4.0-60.3) pg/mL NT-Pro-B Natriuret Pep 45 (<=125) pg/mL Total Protein 7.2 (6.0-8.0) g/dL Albumin 3.4 (3.2-4.6) g/dL Globulin 3.8 g/dL Albumin/Globulin Ratio 0.9 Meds: Medications Generic Name Dose Route Start Last Admin Trade Name Freq PRN Reason Stop Dose Admin Sodium Chloride 10 ml 06/12/19 12:44 06/12/19 13:30 Saline Flush FLUSH 10 ml ASDIRECTED PRN Administration Keep Vein Open Discontinued Medications Generic Name Dose Route Start Last Admin Trade Name Freq PRN Reason Stop Dose Admin Iopamidol 100 ml 06/12/19 13:55 06/12/19 14:28 Isovue-370 (76%) IV 06/12/19 13:56 90 ml . DIRECTED ONE Administration Prednisone 40 mg 06/12/19 15:37 Prednisone PO 06/12/19 15:38 ONETIME ONE - Radiology Interpretation Free Text/Narrative:: CXR: No acute process. (Dr. Valentina Ross) CTA Chest: No pulmonary embolism. Moderate cardiomegaly, with airtrapping and appearance suggestive of hypersensitivity pneumonitis. Incidental note of paraesophageal hernia, and incompletely characterized lesions associated with the left kidney. (Dr. Eden Ross) - Re-Assessments/Exams Free Text/Narrative Re-Assessment/Exam: 06/12/19 16:13 Vitals and patient's condition remained stable. Departure - Departure Time of Disposition: 16:14 Disposition: DC/Tfer to [facility] 03 Condition: Good Clinical Impression: Hypersensitivity pneumonitis - Discharge Information *PRESCRIPTION DRUG MONITORING PROGRAM REVIEWED*: No *COPY OF PRESCRIPTION DRUG MONITORING REPORT IN PATIENT FAM: Not Applicable Prescriptions: predniSONE 40 mg PO DAILY #8 tab Referrals: PCP,Unknown [Ordering Only Provider] - Forms: ED Department Discharge Additional Instructions: Fill prescription for Prednisone at [facility] and give as directed. Continue current medications. Follow up with his Primary Physician in 2 days. Return to the ER if symptoms worsen. Sepsis Event Note - Evaluation Sepsis Screening Result: No Definite Risk - Focused Exam Vital Signs: Vital Signs Temp Pulse Resp BP Pulse Ox 06/12/19 12:25 37.2 C 73 18 116/68 95 Date Exam was Performed: 06/12/19 Time Exam was Performed: 16:11 - My Orders Last 24 Hours: My Active Orders 06/12/19 12:39 Chest 1V Frontal [CR] Stat UA W/MICROSCOPIC [URIN] Stat EKG 12 Lead [EK] Stat 06/12/19 12:40 EKG Documentation Completion [RC] ASDIRECTED 06/12/19 12:41 CORONAVIRUS COVID-19 PCR PHL Stat Isolation [COMM] Routine 06/12/19 12:43 Blood Culture x2 Reflex Set [OM.PC] Urgent 06/12/19 12:44 Sodium Chloride 0.9% [Saline Flush] 10 ml FLUSH ASDIRECTED PRN Saline Lock Insert [OM.PC] Routine 06/12/19 13:00 CULTURE BLOOD [BC] Urgent 06/12/19 13:05 CULTURE BLOOD [BC] Urgent 06/12/19 13:45 Ang Chest [CT] Stat - Assessment/Plan Last 24 Hours: My Active Orders 06/12/19 12:39 Chest 1V Frontal [CR] Stat UA W/MICROSCOPIC [URIN] Stat EKG 12 Lead [EK] Stat 06/12/19 12:40 EKG Documentation Completion [RC] ASDIRECTED 06/12/19 12:41 CORONAVIRUS COVID-19 PCR PHL Stat Isolation [COMM] Routine 06/12/19 12:43 Blood Culture x2 Reflex Set [OM.PC] Urgent 06/12/19 12:44 Sodium Chloride 0.9% [Saline Flush] 10 ml FLUSH ASDIRECTED PRN Saline Lock Insert [OM.PC] Routine 06/12/19 13:00 CULTURE BLOOD [BC] Urgent 06/12/19 13:05 CULTURE BLOOD [BC] Urgent 06/12/19 13:45 Ang Chest [CT] Stat
[2019-06-12] MEDS ORDERED: Iopamidol 755 Mg/ML 100 ML Bottle IV ONE (13:55)
[2019-06-12] MEDS ORDERED: predniSONE 20 MG Tab PO ONE (15:37)
== END 2019-06-12 17:45 ==
LOC: FB.ED 12:23
DX: J67.9 Hypersensitivity pneumonitis due to unspecified organic dust (principal); I10 Essential (primary) hypertension; F32.9 Major depressive disorder, single episode, unspecified; Z88.0 Allergy status to penicillin; Z86.73 Personal history of transient ischemic attack (TIA), and cerebral infarction without residual deficits; Z79.899 Other long term (current) drug therapy
CPT/HCPCS: 36415; 71045; 71275; 80053; 82803; 83605; 83880; 84484; 85025; 85379; 85610; 85730; 87040; 87804; 87804-59; 93005; 93010; 99283; 99285-25; J7512; Q9967; U0002

== ENCOUNTER 2019-06-17 23:07 | Emergency (ER) | payer MEDICARE, OTHER ==
--- NOTE | 2019-06-18 00:32 | EDM.PDOC ---
ED HPI GENERAL MEDICAL PROBLEM - General Chief Complaint: Respiratory Problem Stated Complaint: cdc Time Seen by Provider: 06/18/19 00:25 Source of Information: Reports: Patient, Custodial Records History Limitations: Reports: Other (Patient is a poor historian and most of the history comes from the [facility] personnel.) - History of Present Illness INITIAL COMMENTS - FREE TEXT/NARRATIVE: 68-year-old male who is a resident of [facility] who has had cough with some difficulty breathing since Wednesday of this last week. He was seen in the emergency department at that time and had a fairly full and complete evaluation which included blood tests, chest x-ray and a CTA of his chest. He was felt to have hypersensitivity pneumonitis placed on prednisone and discharged back to the [facility]. He did have a coping 19 test that was negative. Since Wednesday of last week he seemed to improve at times but had other times when he was having trouble breathing and the [facility] RN called [place] to inform me that the patient was having difficulty breathing and seemed rather breathless to her and had O2 saturations that were the low 90s. She does report that he seemed to improve somewhat when she sat him up and he voiced to her that he felt improved but he was still having increased work of breathing and she felt that he needed to be evaluated. The patient was transported to the emergency department via stretcher from the [facility] for evaluation. The patient denies any chest pain. He does have some lower back pain and multiple point pains that he reports are chronic. He is really unable to quantitate or qualitate these other than to say that they are aching and no different from previous. No vomiting. No apparent change in his appetite according to the [facility] staff. No reports of fever. This is the limit of the history that I can obtain. There are no other associated signs or symptoms. There are no other modifying factors. 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 (see below) (Nothing) - Related Data Allergies Allergy/AdvReac Type Severity Reaction Status Date / Time Penicillins Allergy Rash Verified 06/18/19 00:08 Home Meds: Home Meds Acetaminophen [Tylenol] 650 mg PO Q4H PRN #60 tablet 01/30/19 [Rx] Doxazosin [Cardura] 8 mg PO DAILY 30 Days #30 tablet 01/30/19 [Rx] Dutasteride 0.5 mg PO DAILY 30 Days #30 capsule 01/30/19 [Rx] Escitalopram Oxalate 10 mg PO DAILY 30 Days #30 tablet 01/30/19 [Rx] Ferrous Sulfate 325 mg PO DAILY 30 Days #30 tablet 01/30/19 [Rx] Ibuprofen [Motrin] 200 mg PO Q6H PRN 30 Days #60 tablet 01/30/19 [Rx] Magnesium Hydroxide [Milk of Magnesia] 30 ml PO BID PRN 30 Days #30 cup [Rx] Metoprolol Tartrate 100 mg PO BID 30 Days #60 tablet 01/30/19 [Rx] Multivitamin/Iron/Folic Acid [Centrum Adults Tablet] 1 each PO DAILY 30 Days # 30 tablet 01/30/19 [Rx] Omeprazole 20 mg PO DAILY 30 Days #30 capsule. 01/30/19 [Rx] Simvastatin 20 mg PO BEDTIME 30 Days #30 tablet 01/30/19 [Rx] levoFLOXacin [Levaquin] 500 mg PO DAILY 2 Days #2 tab 01/30/19 [Rx] lisinopriL [Lisinopril] 40 mg PO DAILY 30 Days #30 tablet 01/30/19 [Rx] Acetaminophen 1,000 mg PO TID 06/12/19 [History] Ascorbic Acid [Vitamin C 250 mg Tablet Chew] 250 mg PO DAILY 06/12/19 [History] Bisacodyl [Gentle Laxative] 10 mg RECTAL ASDIRECTED PRN 06/12/19 [History] Cholecalciferol (Vitamin D3) [Vitamin D3] 2,000 unit PO DAILY 06/12/19 [History] Codeine Phosphate/Guaifenesin [Guaifenesin AC Cough Syrup] 10 ml PO Q4HR PRN [History] Docusate Sodium [Colace] 10 mg PO DAILY PRN 06/12/19 [History] Eucalyptus/Menthol [Cough Drops] 1 lozenge PO ASDIRECTED PRN 06/12/19 [History] Fluticasone Propionate [Flonase] 1 spray NASBOTH DAILY 06/12/19 [History] Hydrocortisone [Hydrocortisone 2.5% Crm] 1 applic TOP BID PRN 06/12/19 [History] Levothyroxine 25 mcg PO DAILY 06/12/19 [History] Loperamide [Imodium] 2 mg PO ASDIRECTED PRN 06/12/19 [History] Magnesium Hydroxide [Milk of Magnesia] 30 ml PO DAILY 06/12/19 [History] Sennosides/Docusate Sodium [Senna-S] 1 tab PO DAILY 06/12/19 [History] Sodium Chloride 0.9% [Saline Flush] 10 ml FLUSH ASDIRECTED PRN syringe [Rx] amLODIPine [Norvasc] 5 mg PO DAILY 06/12/19 [History] buPROPion [Wellbutrin SR] 150 mg PO DAILY 06/12/19 [History] hydroCHLOROthiazide [Hydrochlorothiazide] 25 mg PO DAILY 06/12/19 [History] predniSONE 40 mg PO DAILY #8 tab 06/12/19 [Rx] Codeine Phosphate/Guaifenesin [Guaifenesin AC Cough Syrup] 10 ml PO Q4HR PRN 05/04 [History] Furosemide 20 mg PO DAILY 06/18/19 [History] levoFLOXacin [Levaquin] 750 mg PO DAILY #6 tablet 06/18/19 [Rx] predniSONE [Prednisone] 1 dose PO DAILY 10 Days tablet 06/18/19 [Rx] Past Medical History Cardiovascular History: Reports: Hypertension Gastrointestinal History: Reports: Colon Polyp, GI Bleed Genitourinary History: Reports: BPH, Renal Calculus, Urinary Incontinence Musculoskeletal History: Reports: Back Pain, Chronic, Osteoarthritis Neurological History: Reports: Concussion, CVA, Other (See Below) Other Neuro History: Lost some use of L arm Psychiatric History: Reports: Depression Endocrine/Metabolic History: Reports: Hypothyroidism, Obesity/BMI 30+ Hematologic History: Reports: Anemia, Blood Transfusion(s) - Infectious Disease History Infectious Disease History: Reports: Chicken Pox, Measles, Mumps, Shingles - Past Surgical History GI Surgical History: Reports: Colonoscopy, Polypectomy Other GI Surgeries/Procedures: polypectomy 2013 Male Surgical History: Reports: Circumcision, Renal Calculus Social & Family History - Family History Cardiac: Reports: Hypertension, [place] Respiratory: Reports: Interstitial Lung Disease - Tobacco Use Smoking Status *Q: Unknown Ever Smoked Used Tobacco, but Quit: No Second Hand Smoke Exposure: No - Caffeine Use Caffeine Use: Reports: Soda Other Caffeine Use: 1-2 cups a day - Living Situation & Occupation Living situation: Reports: Extended Care Facility (Lives at [facility]) Occupation: Retired ED ROS GENERAL - Review of Systems Review Of Systems: See Below Constitutional: Reports: No Symptoms HEENT: Reports: No Symptoms Respiratory: Reports: Shortness of Breath, Cough Cardiovascular: Reports: No Symptoms GI/Abdominal: Reports: No Symptoms : Reports: Incontinence (Has some problems with this which are chronic. Able to urinate on his own as well.) Musculoskeletal: Reports: Back Pain, Joint Pain, Other (The above her chronic.) Skin: Reports: No Symptoms Neurological: Reports: No Symptoms Hematologic/Lymphatic: Reports: No Symptoms Immunologic: Reports: No Symptoms (He had a COVID 19 test earlier this week that was negative.) ED EXAM, GENERAL - Physical Exam Exam: See Below Exam Limited By: No Limitations General Appearance: Alert, Moderate Distress (Appears to have increased work of breathing.), Obese Eye Exam: Bilateral Eye: EOMI, Normal Inspection Ears: Normal External Exam, Hearing Grossly Normal Ear Exam: Bilateral Ear: Auricle Normal Nose: No Blood Throat/Mouth: Normal Oropharynx, Normal Voice, No Airway Compromise Head: Atraumatic, Normocephalic Neck: Normal Inspection, Supple, Non-Tender, Full Range of Motion Respiratory/Chest: Chest Non-Tender, Respiratory Distress, Decreased Breath Sounds, Crackles, Rhonchi, Accessory Muscle Use Cardiovascular: Normal Peripheral Pulses, Regular Rate, Rhythm, No Gallop Peripheral Pulses: 2+: Radial (L), Radial (R), Dorsalis Pedis (L), Dorsalis Pedis (R) GI/Abdominal: Normal Bowel Sounds, Soft, Non-Tender, No Mass Back Exam: Normal Inspection, Full Range of Motion Extremities: Normal Range of Motion, Non-Tender, Normal Capillary Refill, Pedal Edema, Other (He does have pain in his shoulder and this is chronic and he cannot raise his left arm above his shoulder but he has normal function in his elbow, wrist and hand on the left side.) Neurological: Alert, CN II-XII Intact, No Motor/Sensory Deficits, Disoriented ( to time), Other (I cannot definitely determine any focal deficits.) Skin Exam: Warm, Dry, Intact, Normal Color, No Rash EKG INTERPRETATION EKG Date: 06/18/19 Time: 00:54 Rhythm: NSR Rate (Beats/Min): 64 [place]: LAD-Left [place] Deviation (Slight left axis deviation) P-Wave: Present QRS: Normal ST-T: Normal QT: Normal CO/PQ Interval: Slightly prolonged CO interval. Comparison: No Change (No change from EKG performed on 06/12/2019.) Course - Vital Signs Last Recorded V/S: Last Vital Signs Temp 37.1 C 06/18/19 02:58 Pulse 76 06/18/19 02:58 Resp 22 H 06/18/19 02:58 BP 141/96 H 06/18/19 02:58 Pulse Ox 95 06/18/19 02:58 - Orders/Labs/Meds Orders: Active Orders 24 hr Category Date Time Status EKG Documentation Completion [RC] ASDIRECTED Care 06/18/19 00:48 Active Chest 1V Frontal [CR] Stat Exams 06/18/19 00:47 Taken CORONAVIRUS COVID-19 PCR PHL Routine Lab 06/18/19 01:15 Received Sodium Chloride 0.9% [Saline Flush] Med 06/18/19 00:49 Active 10 ml FLUSH ASDIRECTED PRN Peripheral IV Insertion Adult [OM.PC] Routine Oth 06/18/19 00:49 Ordered EKG 12 Lead [EK] Routine Ther 06/18/19 00:47 Ordered Medication Orders Sodium Chloride (Saline Flush) 10 ml FLUSH ASDIRECTED PRN PRN Reason: Keep Vein Open Last Admin: 06/18/19 01:00 Dose: 10 ml Labs: Laboratory Tests 06/18/19 06/18/19 06/18/19 Range/Units 00:24 01:14 01:14 WBC 8.8 (4.5-12.0) X10-3/uL RBC 4.10 L (4.30-5.75) x10(6)uL Hgb 13.0 L (13.5-17.8) g/dL Hct 39.3 (30.0-51.3) % MCV 95.8 (80-96) fL MCH 31.8 (27.7-33.6) pg MCHC 33.2 (32.2-35.4) g/dL RDW 13.5 (11.5-15.5) % Plt Count 276 (125-369) X10(3)uL MPV 7.5 (7.4-10.4) fL Neut % (Auto) 64.0 (46-82) % Lymph % (Auto) 18.9 (13-37) % [place] % (Auto) 9.0 (4-12) % Eos % (Auto) 7 H (1.0-5.0) % Baso % (Auto) 1 (0-2) % Neut # (Auto) 5.6 (1.6-8.3) # Lymph # (Auto) 1.7 (0.6-5.0) # [place] # (Auto) 0.8 (0.0-1.3) # Eos # (Auto) 0.6 (0.0-0.8) # Baso # (Auto) 0.1 (0.0-0.2) # PT (9.0-11.1) sec INR (1.00-1.24) POC VBG pH 7.38 (7.31-7.41) POC VBG pCO2 48.1 (41-51) mmHG POC VBG HCO3 28.5 H (23-28) mmol/L POC VBG Total CO2 30 H (24-29) mmol/L POC VBG Base Excess 3 (-2-3) mmol/L Sodium 140 (135-145) mmol/L Potassium 4.2 (3.5-5.3) mmol/L Chloride 102 (100-110) mmol/L Carbon Dioxide 29 (21-32) mmol/L BUN 29 H (7-18) mg/dL Creatinine 1.0 (0.70-1.30) mg/dL Est Cr Clr Drug Dosing 62.35 mL/min Estimated GFR (MDRD) > 60 (>60) BUN/Creatinine Ratio 29.0 H (9-20) Glucose 98 (80-116) mg/dL Calcium 8.4 L (8.6-10.2) mg/dL Magnesium 1.8 (1.8-2.5) mg/dL Total Bilirubin 0.3 (0.1-1.3) mg/dL AST 15 D (5-25) IU/L ALT 35 (12-36) U/L Alkaline Phosphatase 64 (56-112) IU/L Troponin I (4.0-60.3) pg/mL C-Reactive Protein (0.5-0.9) mg/dL NT-Pro-B Natriuret Pep (<=125) pg/mL Total Protein 6.9 (6.0-8.0) g/dL Albumin 3.2 (3.2-4.6) g/dL Globulin 3.7 g/dL Albumin/Globulin Ratio 0.9 06/18/19 06/18/19 Range/Units 01:14 01:14 WBC (4.5-12.0) X10-3/uL RBC (4.30-5.75) x10(6)uL Hgb (13.5-17.8) g/dL Hct (30.0-51.3) % MCV (80-96) fL MCH (27.7-33.6) pg MCHC (32.2-35.4) g/dL RDW (11.5-15.5) % Plt Count (125-369) X10(3)uL MPV (7.4-10.4) fL Neut % (Auto) (46-82) % Lymph % (Auto) (13-37) % [place] % (Auto) (4-12) % Eos % (Auto) (1.0-5.0) % Baso % (Auto) (0-2) % Neut # (Auto) (1.6-8.3) # Lymph # (Auto) (0.6-5.0) # [place] # (Auto) (0.0-1.3) # Eos # (Auto) (0.0-0.8) # Baso # (Auto) (0.0-0.2) # PT 10.0 (9.0-11.1) sec INR 0.93 L (1.00-1.24) POC VBG pH (7.31-7.41) POC VBG pCO2 (41-51) mmHG POC VBG HCO3 (23-28) mmol/L POC VBG Total CO2 (24-29) mmol/L POC VBG Base Excess (-2-3) mmol/L Sodium (135-145) mmol/L Potassium (3.5-5.3) mmol/L Chloride (100-110) mmol/L Carbon Dioxide (21-32) mmol/L BUN (7-18) mg/dL Creatinine (0.70-1.30) mg/dL Est Cr Clr Drug Dosing mL/min Estimated GFR (MDRD) (>60) BUN/Creatinine Ratio (9-20) Glucose (80-116) mg/dL Calcium (8.6-10.2) mg/dL Magnesium (1.8-2.5) mg/dL Total Bilirubin (0.1-1.3) mg/dL AST (5-25) IU/L ALT (12-36) U/L Alkaline Phosphatase (56-112) IU/L Troponin I 7.4 (4.0-60.3) pg/mL C-Reactive Protein < 0.2 L (0.5-0.9) mg/dL NT-Pro-B Natriuret Pep 81 (<=125) pg/mL Total Protein (6.0-8.0) g/dL Albumin (3.2-4.6) g/dL Globulin g/dL Albumin/Globulin Ratio Meds: Medications Generic Name Dose Route Start Last Admin Trade Name Freq PRN Reason Stop Dose Admin Sodium Chloride 10 ml 06/18/19 00:49 06/18/19 01:00 Saline Flush FLUSH 10 ml ASDIRECTED PRN Administration Keep Vein Open Discontinued Medications Generic Name Dose Route Start Last Admin Trade Name Freq PRN Reason Stop Dose Admin Levofloxacin 750 mg 06/18/19 02:27 06/18/19 02:32 Levaquin PO 06/18/19 02:28 750 mg ONETIME ONE Administration Prednisone 60 mg 06/18/19 02:26 06/18/19 02:32 Prednisone PO 06/18/19 02:27 60 mg ONETIME ONE Administration - Radiology Interpretation Free Text/Narrative:: Portable chest x-ray shows some haziness in the left lower lung but otherwise negative. - Re-Assessments/Exams Free Text/Narrative Re-Assessment/Exam: 06/18/19 02:20: The patient's blood tests are all reassuringly normal. Despite his current of increased work of breathing, he has maintained an O2 saturation of 96% on room air. He has just recently had a fairly complete workup which included a CTA of his chest which showed no evidence of pulmonary embolus but did show evidence of some pneumonitis. I have sent repeat testing for COVID 19. He does appear to have a pneumonia on x-ray place the patient on Levaquin to treat for this as well as back on prednisone for a 10 day taper. At this point with his normal O2 saturation and normal blood tests, I feel he is able [facility] with cares as above and careful monitoring by the [facility] staff. They are to call and discussed the patient's case with Dr. Miranda, hospitalist, tomorrow to give him a report and up-to-date on the patient. Departure - Departure Time of Disposition: 02:50 Disposition: DC/Tfer to SNF 03 Condition: Fair (Stable) Clinical Impression: Suspected COVID-19 virus infection Pneumonia Qualifiers: Pneumonia type: due to unspecified organism Laterality: left Lung location: lower lobe of lung Qualified Code(s): J18.9 - Pneumonia, unspecified organism - Discharge Information Prescriptions: levoFLOXacin [Levaquin] 750 mg PO DAILY #6 tablet predniSONE [Prednisone] 1 dose PO DAILY 10 Days tablet Instructions: Community-Acquired Pneumonia, Adult, [id number] Referrals: Marge Iyer MD [Primary Care Provider] - Forms: ED Department Discharge Additional Instructions: His blood tests were all reassuringly normal. His chest x-ray did appear to show a pneumonia in the left lower lung. His O2 saturations remained 96% on room air while he was here and he remained hemodynamically and vitally stable. I did retest the patient for COVID 19 and he should be under isolation until this repeat test comes back. Try to do things to ensure him to cough and have good pulmonary toilet. Increase his fluid intake. Medication as prescribed ( Levaquin 750 mg, prednisone). Follow-up with Dr. Miranda later today with a report on the patient and an update. Back to the emergency department for, unrelenting vomiting or any other concerning sign or symptom. Sepsis Event Note - Evaluation Sepsis Screening Result: No Definite Risk - Focused Exam Vital Signs: Vital Signs Temp Pulse Resp BP Pulse Ox 06/18/19 02:58 37.1 C 76 22 H 141/96 H 95 06/17/19 23:10 37.1 C 64 24 H 149/87 H 99 Date Exam was Performed: 06/18/19 Time Exam was Performed: 03:13 - My Orders Last 24 Hours: My Active Orders 06/18/19 00:47 Chest 1V Frontal [CR] Stat EKG 12 Lead [EK] Routine 06/18/19 00:48 EKG Documentation Completion [RC] ASDIRECTED 06/18/19 00:49 Sodium Chloride 0.9% [Saline Flush] 10 ml FLUSH ASDIRECTED PRN Peripheral IV Insertion Adult [OM.PC] Routine 06/18/19 01:15 CORONAVIRUS COVID-19 PCR PHL Routine - Assessment/Plan Last 24 Hours: My Active Orders 06/18/19 00:47 Chest 1V Frontal [CR] Stat EKG 12 Lead [EK] Routine 06/18/19 00:48 EKG Documentation Completion [RC] ASDIRECTED 06/18/19 00:49 Sodium Chloride 0.9% [Saline Flush] 10 ml FLUSH ASDIRECTED PRN Peripheral IV Insertion Adult [OM.PC] Routine 06/18/19 01:15 CORONAVIRUS COVID-19 PCR PHL Routine
[2019-06-18] MEDS: Sodium Chloride 0.9% 10 ML Syringe FLUSH PRN (01:00)
[2019-06-18] MEDS: predniSONE 20 MG Tab PO ONE (02:32)
[2019-06-18] MEDS: Levofloxacin 750 MG Tab PO ONE (02:32)
--- NOTE | 2019-06-19 10:47 | CR ---
INDICATION: Difficulty breathing. CHEST, ONE VIEW: An AP upright portable view of the chest was obtained and compared with 06/12/19 and 01/25/19. Evidence of exogenous obesity is again noted. The heart appears to be near the upper limits of normal in size. The aorta is tortuous with minimal calcification in the arch. A definite active infiltrate or effusion was not identified. IMPRESSION: No acute findings - findings as noted above. MTDD
== END 2019-06-18 03:10 ==
LOC: FB.ED 23:07
DX: J18.9 Pneumonia, unspecified organism (principal); Z03.818 Encounter for observation for suspected exposure to other biological agents ruled out; F32.9 Major depressive disorder, single episode, unspecified; E03.9 Hypothyroidism, unspecified; E66.9 Obesity, unspecified; Z68.39 Body mass index [BMI] 39.0-39.9, adult; Z88.0 Allergy status to penicillin; Z79.899 Other long term (current) drug therapy; Z86.73 Personal history of transient ischemic attack (TIA), and cerebral infarction without residual deficits
CPT/HCPCS: 36415; 71045; 80053; 82803; 83735; 83880; 84484; 85025; 85610; 86140; 93005; 99284; 99285-25; A9270-GY; J7512; U0002

== ENCOUNTER 2019-08-29 07:36 | Day surgery (SDC) | payer MEDICARE ==
[~2019-08-29 07:36] MED LIST: Sodium Chloride 0.9% 10 ML Syringe FLUSH PRN
[2019-08-29] MEDS ORDERED: fentaNYL 100 MCG/2 ML SDV IV ONE (07:37)
[2019-08-29] MEDS ORDERED: Midazolam 1 MG/ML 2 ML SDV IV ONE (07:37)
[2019-08-29] MEDS ORDERED: acetaZOLAMIDE 500 MG Cap.ER PO ONE (09:00)
--- NOTE | 2019-08-29 12:36 | OR ---
DATE OF OPERATION: 08/29/2019 SURGEON: Judit Lincoln MD PREOPERATIVE DIAGNOSIS: Visually significant cataract, left eye. 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 PROCEDURES PERFORMED: Phacoemulsification with intraocular lens placement, left eye. ASSISTANTS: None. ANESTHESIA: Local with sedation. COMPLICATIONS: None. BLOOD LOSS: None. IMPLANTS: Arpit ACU0T0 20.5 diopter lens implanted. CDE: 1.48. DESCRIPTION OF PROCEDURE: After risks and benefits were reviewed with the patient, consent was obtained in the preoperative area, and the operative eye was marked with a surgical pen. In the preoperative area, a pledget was used to dilate the pupil consisting of a mixture of phenylephrine 10%, cyclopentolate 2%, moxifloxacin 0.5%, and bupivacaine 0.75%. The patient was taken to the operating room, where a time-out was performed, and the patient was placed under monitored anesthesia care. Topical tetracaine was used for anesthesia. The operative eye was prepped and draped for ophthalmic surgery, and the microscope was brought into position and focused. A paracentesis incision was made, followed by injection of preservative-free 1% lidocaine into the anterior chamber, followed by injection of Viscoat into the anterior chamber. A microkeratome blade was used to make a corneal limbal incision temporally. A cystotome was used to make the beginning of the capsulorrhexis, which was carried around 360 degrees in a curvilinear fashion using Utrata forceps. It was noted the iris was floppy, and the pupil dilation did come down to 3 mm for the rest of the surgery. A Mittal cannula with BSS was used to hydrodissect and hydrodelineate the nucleus. The nucleus was removed in a divide and conquer manner using phacoemulsification. Irrigation and aspiration were used to remove the remaining cortical material. Provisc was used to inflate the capsular bag, and a pre-loaded Arpit ACU0T0 20.5 diopter lens, serial number [id number] was injected into the capsular bag. A Sinskey hook was used to position and center the lens. Next, irrigation and aspiration was used to remove any remaining viscoelastic and cortical material from the anterior chamber. BSS on a cannula was used to inflate the anterior chamber and hydrate the wound. The wound was checked and found to be watertight. 1 mg of Moxifloxacin was injected into the anterior chamber. Drapes were removed and the eye was cleaned. A drop of brimonidine 0.15% and a drop of TobraDex was placed. The eye was shielded, and the patient was taken to the recovery room in stable condition. /[id number] LOLIS/CARLOTA CC: JONAS MCGUIRE MD MTDD
== END 2019-08-29 10:04 ==
LOC: FB.SDS 07:36
PROVIDERS: ATTEND Ophthalmology
DX: H25.13 Age-related nuclear cataract, bilateral (principal); H21.81 Floppy iris syndrome; F41.8 Other specified anxiety disorders; H02.836 Dermatochalasis of left eye, unspecified eyelid; H02.881 Meibomian gland dysfunction right upper eyelid; H02.884 Meibomian gland dysfunction left upper eyelid; H02.833 Dermatochalasis of right eye, unspecified eyelid; Z79.899 Other long term (current) drug therapy
CPT/HCPCS: 00142-QZ; A9270-GY; J2250; J3010; V2632

== ENCOUNTER 2019-09-12 08:56 | Day surgery (SDC) | payer MEDICARE ==
[2019-09-12] MEDS ORDERED: Midazolam 1 MG/ML 2 ML SDV IV ONE (08:57)
[2019-09-12] MEDS ORDERED: fentaNYL 100 MCG/2 ML SDV IV ONE (08:57)
[2019-09-12] MEDS ORDERED: Sodium Chloride 0.9% 10 ML Syringe FLUSH PRN (09:00)
[2019-09-12] MEDS ORDERED: Lactated Ringers 1,000 ML IV SCH (09:00)
[2019-09-12] MEDS ORDERED: acetaZOLAMIDE 500 MG Cap.ER PO ONE (10:30)
--- NOTE | 2019-09-13 09:25 | OR ---
DATE OF OPERATION: 09/12/2019 SURGEON: Judit Lincoln MD PREOPERATIVE DIAGNOSES: 1. Visually significant cataract, right eye. 2. Floppy iris syndrome, right eye. POSTOPERATIVE DIAGNOSES: 1. Visually significant cataract, right eye. 2. Floppy iris syndrome, right eye. PROCEDURES PERFORMED: Complex phacoemulsification with intraocular lens placement, right eye, CPT 54522. ASSISTANTS: None. ANESTHESIA: Local with sedation. COMPLICATIONS: None. BLOOD LOSS: None. IMPLANTS: Arpit ACU0T0, 21.0 diopter lens implanted. CDE: 1.18. DESCRIPTION OF PROCEDURE: After risks and benefits were reviewed with the patient, consent was obtained in the preoperative area, and the operative eye was marked with a surgical pen. In the preoperative area, a pledget was used to dilate the pupil consisting of a mixture of phenylephrine 10%, cyclopentolate 2%, moxifloxacin 0.5%, and bupivacaine 0.75%. The patient was taken to the operating room, where a time-out was performed, and the patient was placed under monitored anesthesia care. Topical tetracaine was used for anesthesia. The operative eye was prepped and draped for ophthalmic surgery, and the microscope was brought into position and focused. A paracentesis incision was made, followed by injection of preservative-free 1% lidocaine into the anterior chamber, followed by injection of Viscoat into the anterior chamber. A microkeratome blade was used to make a corneal limbal incision temporally. A Malyugin ring was used to dilate the pupil to 7.0 mm due to floppy iris syndrome. A cystotome was used to make the beginning of the capsulorrhexis, which was carried around 360 degrees in a curvilinear fashion using Utrata forceps. A Mittal cannula with BSS was used to hydrodissect and hydrodelineate the nucleus. The nucleus was removed in a divide and conquer manner using phacoemulsification. Irrigation and aspiration were used to remove the remaining cortical material. Provisc was used to inflate the capsular bag, and a pre-loaded Arpit ACU0T0, 21.0 diopter lens, serial number [id number] was injected into the capsular bag. A Sinskey hook was used to position and center the lens. The Malyugin ring was then removed from the anterior chamber and discarded. Next, irrigation and aspiration was used to remove any remaining viscoelastic and cortical material from the anterior chamber. BSS on a cannula was used to inflate the anterior chamber and hydrate the wound. The wound was checked and found to be watertight. 1 mg of Moxifloxacin was injected into the anterior chamber. Drapes were removed and the eye was cleaned. A drop of brimonidine 0.15% and a drop of TobraDex was placed. The eye was shielded, and the patient was taken to the recovery room in stable condition. CC: Jennifer Epps OD CC: Sumi Bell CNP /[id number] LOLIS/CARLOTA
== END 2019-09-12 11:15 ==
LOC: FB.SDS 08:56
PROVIDERS: ATTEND Ophthalmology
DX: H25.11 Age-related nuclear cataract, right eye (principal); H21.81 Floppy iris syndrome; I10 Essential (primary) hypertension; H02.831 Dermatochalasis of right upper eyelid; H02.834 Dermatochalasis of left upper eyelid; H02.881 Meibomian gland dysfunction right upper eyelid; H02.884 Meibomian gland dysfunction left upper eyelid; Z98.42 Cataract extraction status, left eye
CPT/HCPCS: 00142-QZ; A9270-GY; J2250; J3010; J7120; V2632

== ENCOUNTER 2020-06-24 16:04 | Emergency (ER) | payer MEDICARE ==
[2020-06-24 17:20] LABS: PCO2 VENOUS,POC 41 mmHg (41-51); PH VENOUS,POC 7.48 pH Units (7.32-7.43)
[2020-06-24 17:21] LABS: BASE EXCESS VENOUS,POC 7 mmol/L (-2-3); HCO3 VENOUS,POC 30 mmol/L (21-29)
--- NOTE | 2020-06-24 18:20 | EDM.PDOC ---
ED HPI GENERAL MEDICAL PROBLEM - General Chief Complaint: Cardiovascular Problem Stated Complaint: ??? 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 He stated "WE will plan for a PET myocardial perfusion study after he has been diuresed, and this will be to rule out ischemia as the cause of his sob, particularly given his abnormal EKG findings." However, pt has not been able to be diuresed, has had a 3 lb inc'd wt in past month. pt moderately breathless now, no cp never smoked lived in apartment until 1y ago, then hospitalized and entered halfway, nonambulatory d/t peripheral edema and DJD of knees and hips, had been a candidate for replacement of knees and hips which apparently was not done d/t HF on Eliquis for h/o DVTs, has inc'd d-dimer again today EKG today with no acute ST changes, does show early RWP and low voltage in anterior leads c/w 1y ago of uncertain clinical sig CV meds: lisinopril 40 mg/d, metoprolol 100 mg bid has received GTRAN - Related Data Allergies Allergy/AdvReac Type Severity Reaction Status Date / Time Penicillins Allergy Rash Verified 09/11/19 14:46 Home Meds: Home Meds Acetaminophen [Tylenol] 650 mg PO Q4H PRN #60 tablet 01/30/19 [Rx] Dutasteride 0.5 mg PO DAILY 30 Days #30 capsule 01/30/19 [Rx] Metoprolol Tartrate 100 mg PO BID 30 Days #60 tablet 01/30/19 [Rx] Acetaminophen 1,000 mg PO TID 06/12/19 [History] Levothyroxine 25 mcg PO DAILY 06/12/19 [History] Loperamide [Imodium] 2 mg PO ASDIRECTED PRN 06/12/19 [History] Cholecalciferol (Vitamin D3) [Vitamin D] 2,000 unit PO DAILY 08/28/19 [History] Doxazosin [Cardura] 8 mg PO DAILY 08/28/19 [History] Escitalopram [Lexapro] 10 mg PO DAILY 09/11/19 [History] Apixaban [Eliquis] 5 mg PO BID 06/24/20 [History] Camphor/Menthol [Sarna Lotion] 1 applic TOP DAILY 06/24/20 [History] Camphor/Menthol [Sarna Lotion] 1 applic TOP DAILY PRN 06/24/20 [History] Carboxymethylcellulose Sodium [Refresh Tears 0.5%] 1 drop EYEBOTH TID 06/24/20 [History] Doxazosin Mesylate [Cardura] 2 mg PO DAILY 06/24/20 [History] Furosemide 40 mg PO DAILY 06/24/20 [History] Furosemide [Lasix] 20 mg PO DAILY@1200 06/24/20 [History] Magnesium Hydroxide [Milk of Magnesia] 30 ml PO DAILY PRN 06/24/20 [History] Menthol/Selenium Sulfide [Selsun Blue 1% Shampoo] 1 applic TOP WE 06/24/20 [History] Multivitamin 1 tab PO DAILY 06/24/20 [History] Pantoprazole Sodium [Protonix] 40 mg PO DAILY 06/24/20 [History] guaiFENesin 10 ml PO Q4H PRN 06/24/20 [History] lisinopriL [Lisinopril] 40 mg PO DAILY 06/24/20 [History] metOLazone [Metolazone] 2.5 mg PO MOWEFR 06/24/20 [History] traMADol [Ultram] 25 mg PO Q6H PRN 06/24/20 [History] traMADol [Ultram] 100 mg PO BEDTIME 06/24/20 [History] Past Medical History HEENT History: Reports: Cataract, Other (See Below) Other HEENT History: hydrocephalus Cardiovascular History: Reports: Hypertension, Other (See Below) Other Cardiovascular History: peripheral edema Respiratory History: Reports: Other (See Below) Other Respiratory History: alveolar inflammation, hypersensitivity pneumonitis Gastrointestinal History: Reports: Colon Polyp, GI Bleed, Other (See Below) Other Gastrointestinal History: gi bleed 1990, dyspepsia Genitourinary History: Reports: BPH, Prostate Disorder, Renal Calculus, Urinary Incontinence Musculoskeletal History: Reports: Arthritis, Back Pain, Chronic, Osteoarthritis Other Musculoskeletal History: hip pain, left knee pain Neurological History: Reports: Concussion, CVA, Other (See Below) Other Neuro History: Lost some use of L arm Psychiatric History: Reports: Anxiety, Depression Endocrine/Metabolic History: Reports: Hypothyroidism, Obesity/BMI 30+ Hematologic History: Reports: Anemia, Blood Transfusion(s) - Infectious Disease History Infectious Disease History: Reports: Chicken Pox, Measles, Mumps, Shingles - Past Surgical History Cardiovascular Surgical History: Reports: None GI Surgical History: Reports: Colonoscopy, Polypectomy Other GI Surgeries/Procedures: polypectomy 2013 Male Surgical History: Reports: Circumcision, Renal Calculus Neurological Surgical History: Reports: None Musculoskeletal Surgical History: Reports: None Social & Family History - Family History Family Medical History: No Pertinent Family History Cardiac: Reports: Hypertension, [place] Respiratory: Reports: Interstitial Lung Disease - Tobacco Use Tobacco Use Status *Q: Unknown Ever Used Tobacco - Caffeine Use Caffeine Use: Reports: Coffee Other Caffeine Use: 1-2 cups a day - Recreational Drug Use Recreational Drug Use: No - Living Situation & Occupation Living situation: Reports: Extended Care Facility (Lives at [facility]) Occupation: Retired ED ROS GENERAL - Review of Systems Review Of Systems: See Below Constitutional: Reports: No Symptoms HEENT: Reports: No Symptoms Respiratory: Reports: Shortness of Breath Cardiovascular: Reports: No Symptoms. Denies: Chest Pain Endocrine: Reports: No Symptoms GI/Abdominal: Reports: No Symptoms : Reports: No Symptoms Musculoskeletal: Reports: No Symptoms Skin: Reports: No Symptoms Neurological: Reports: No Symptoms Psychiatric: Reports: No Symptoms Hematologic/Lymphatic: Reports: No Symptoms Immunologic: Reports: No Symptoms ED EXAM, GENERAL - Physical Exam Exam: See Below Exam Limited By: No Limitations General Appearance: Alert, WD/WN, Mild Distress Eye Exam: Bilateral Eye: EOMI, PERRL Nose: Normal Inspection Throat/Mouth: Normal Inspection, Normal Lips, Normal Teeth, No Airway Compromise Head: Atraumatic, Normocephalic Neck: Normal Inspection, Supple, Non-Tender, Full Range of Motion Respiratory/Chest: Other (inc'd exp phase with wheezing, using accessory muscles, talks 6-word sentences, moderate breathless, animated, good eye contact, conversant, no cough observed, retractions) GI/Abdominal: Soft, Non-Tender, No Distention, Other (no dullness at flanks) Extremities: Other (3-4+ edema to knees, trace edema thighs, no presacral edema) Neurological: Alert, Oriented, CN II-XII Intact, No Motor/Sensory Deficits Psychiatric: Normal Affect, Normal Mood Skin Exam: Warm, Dry, Intact, Normal Color, No Rash Lymphatic: No Adenopathy #1 Interpretation EKG Interpretation Comments: no acute ST changes, does show early RWP and low voltage in anterior leads c/w 1y ago of uncertain clinical sig Course - Vital Signs Last Recorded V/S: Last Vital Signs Temp 37.1 C 06/24/20 16:04 Pulse 87 06/24/20 16:04 Resp 22 H 06/24/20 16:04 BP 122/83 06/24/20 16:04 Pulse Ox 95 06/24/20 16:04 - Orders/Labs/Meds Orders: Active Orders 24 hr Category Date Time Status EKG Documentation Completion [RC] ASDIRECTED Care 06/24/20 16:55 Active Chest 1V Frontal [CR] Stat Exams 06/24/20 16:54 Ordered EKG 12 Lead [EK] Routine Ther 06/24/20 16:54 Ordered Labs: Laboratory Tests 06/24/20 06/24/20 06/24/20 Range/Units 16:14 17:07 17:07 WBC 9.1 (3.2-10.1) x10-3/uL RBC 3.61 L (3.90-5.90) x10(6)uL Hgb 11.6 L (12.9-17.7) g/dL Hct 34.9 L (38.3-50.1) % MCV 96.6 (80.8-98.7) fL MCH 32.2 (27.0-33.3) pg MCHC 33.3 (28.7-35.3) g/dL RDW 12.8 (12.4-15.0) % Plt Count 263 (117-477) x10(3)uL MPV 7.7 (6.7-11.0) fL Neut % (Auto) 65.4 (40.3-71.8) % Lymph % (Auto) 15.4 L (15.8-45.3) % Rhea % (Auto) 13.9 (5.5-15.2) % Eos % (Auto) 4.5 (0.1-6.8) % Baso % (Auto) 0.8 (0.3-3.8) % Neut # (Auto) 5.9 (1.7-6.9) x10-3/uL Lymph # (Auto) 1.4 (0.5-4.5) x10-3/uL Rhea # (Auto) 1.3 H (0.0-1.2) x10-3/uL Eos # (Auto) 0.4 (0.0-0.6) x10-3/uL Baso # (Auto) 0.1 (0.0-0.3) x10-3/uL PT 10.4 (9.0-11.1) sec INR 0.96 L (1.00-1.24) D-Dimer, Quantitative 1.77 H (0.0-0.59) mg/LFEU POC VBG pH (7.32-7.43) pH Units POC VBG pCO2 (41-51) mmHg POC VBG HCO3 (21-29) mmol/L VBG Base Excess (-2-3) mmol/L O2 Delivery Device Sodium (135-145) mmol/L Potassium (3.5-5.3) mmol/L Chloride (100-110) mmol/L Carbon Dioxide (21-32) mmol/L BUN (7-18) mg/dL Creatinine (0.70-1.30) mg/dL Est Cr Clr Drug Dosing mL/min Estimated GFR (MDRD) (>60) BUN/Creatinine Ratio (9-20) Glucose (80-116) mg/dL Lactic Acid (0.4-2.0) mmol/L Calcium (8.6-10.2) mg/dL Total Bilirubin (0.1-1.3) mg/dL AST (5-25) IU/L ALT (12-36) U/L Alkaline Phosphatase (56-112) IU/L Troponin I (4.0-60.3) pg/mL C-Reactive Protein (0.5-0.9) mg/dL NT-Pro-B Natriuret Pep (<=125) pg/mL Total Protein (6.0-8.0) g/dL Albumin (3.2-4.6) g/dL Globulin g/dL Albumin/Globulin Ratio Urine Color Yellow (YELLOW) Urine Appearance Clear (CLEAR) Urine pH 5.0 (5.0-6.5) Ur Specific [place] 1.005 L (1.010-1.025) Urine Protein Negative (NEGATIVE) mg/dL Urine Glucose (UA) Normal (NORMAL) mg/dL Urine Ketones Negative (NEGATIVE) mg/dL Urine Occult Blood Negative (NEGATIVE) Urine Nitrite Negative (NEGATIVE) Urine Bilirubin Negative (NEGATIVE) Urine Urobilinogen Normal (NEGATIVE) mg/dL Ur Leukocyte Esterase Moderate H (NEGATIVE) Urine RBC 0-5 (0-5) Urine WBC 10-20 H (0-5) Ur Squamous Epith Cells Occasional (NS,R,O) Urine Bacteria Few H (NS) 06/24/20 06/24/20 06/24/20 Range/Units 17:07 17:07 17:07 WBC (3.2-10.1) x10-3/uL RBC (3.90-5.90) x10(6)uL Hgb (12.9-17.7) g/dL Hct (38.3-50.1) % MCV (80.8-98.7) fL MCH (27.0-33.3) pg MCHC (28.7-35.3) g/dL RDW (12.4-15.0) % Plt Count (117-477) x10(3)uL MPV (6.7-11.0) fL Neut % (Auto) (40.3-71.8) % Lymph % (Auto) (15.8-45.3) % Rhea % (Auto) (5.5-15.2) % Eos % (Auto) (0.1-6.8) % Baso % (Auto) (0.3-3.8) % Neut # (Auto) (1.7-6.9) x10-3/uL Lymph # (Auto) (0.5-4.5) x10-3/uL Rhea # (Auto) (0.0-1.2) x10-3/uL Eos # (Auto) (0.0-0.6) x10-3/uL Baso # (Auto) (0.0-0.3) x10-3/uL PT (9.0-11.1) sec INR (1.00-1.24) D-Dimer, Quantitative (0.0-0.59) mg/LFEU POC VBG pH (7.32-7.43) pH Units POC VBG pCO2 (41-51) mmHg POC VBG HCO3 (21-29) mmol/L VBG Base Excess (-2-3) mmol/L O2 Delivery Device Sodium 141 (135-145) mmol/L Potassium 4.1 (3.5-5.3) mmol/L Chloride 99 L (100-110) mmol/L Carbon Dioxide 34 H (21-32) mmol/L BUN 51 H (7-18) mg/dL Creatinine 1.5 H (0.70-1.30) mg/dL Est Cr Clr Drug Dosing 41.00 mL/min Estimated GFR (MDRD) 47 L (>60) BUN/Creatinine Ratio 34.0 H (9-20) Glucose 111 (80-116) mg/dL Lactic Acid 1.0 (0.4-2.0) mmol/L Calcium 8.9 (8.6-10.2) mg/dL Total Bilirubin 0.2 (0.1-1.3) mg/dL AST 20 (5-25) IU/L ALT 34 (12-36) U/L Alkaline Phosphatase 77 (56-112) IU/L Troponin I 5.8 (4.0-60.3) pg/mL C-Reactive Protein 1.1 H (0.5-0.9) mg/dL NT-Pro-B Natriuret Pep 71 (<=125) pg/mL Total Protein 7.3 (6.0-8.0) g/dL Albumin 3.4 (3.2-4.6) g/dL Globulin 3.9 g/dL Albumin/Globulin Ratio 0.9 Urine Color (YELLOW) Urine Appearance (CLEAR) Urine pH (5.0-6.5) Ur Specific [place] (1.010-1.025) Urine Protein (NEGATIVE) mg/dL Urine Glucose (UA) (NORMAL) mg/dL Urine Ketones (NEGATIVE) mg/dL Urine Occult Blood (NEGATIVE) Urine Nitrite (NEGATIVE) Urine Bilirubin (NEGATIVE) Urine Urobilinogen (NEGATIVE) mg/dL Ur Leukocyte Esterase (NEGATIVE) Urine RBC (0-5) Urine WBC (0-5) Ur Squamous Epith Cells (NS,R,O) Urine Bacteria (NS) 06/24/20 Range/Units 17:07 WBC (3.2-10.1) x10-3/uL RBC (3.90-5.90) x10(6)uL Hgb (12.9-17.7) g/dL Hct (38.3-50.1) % MCV (80.8-98.7) fL MCH (27.0-33.3) pg MCHC (28.7-35.3) g/dL RDW (12.4-15.0) % Plt Count (117-477) x10(3)uL MPV (6.7-11.0) fL Neut % (Auto) (40.3-71.8) % Lymph % (Auto) (15.8-45.3) % Rhea % (Auto) (5.5-15.2) % Eos % (Auto) (0.1-6.8) % Baso % (Auto) (0.3-3.8) % Neut # (Auto) (1.7-6.9) x10-3/uL Lymph # (Auto) (0.5-4.5) x10-3/uL Rhea # (Auto) (0.0-1.2) x10-3/uL Eos # (Auto) (0.0-0.6) x10-3/uL Baso # (Auto) (0.0-0.3) x10-3/uL PT (9.0-11.1) sec INR (1.00-1.24) D-Dimer, Quantitative (0.0-0.59) mg/LFEU POC VBG pH 7.48 H (7.32-7.43) pH Units POC VBG pCO2 41 (41-51) mmHg POC VBG HCO3 30 H (21-29) mmol/L VBG Base Excess 7 H (-2-3) mmol/L O2 Delivery Device Room air Sodium (135-145) mmol/L Potassium (3.5-5.3) mmol/L Chloride (100-110) mmol/L Carbon Dioxide (21-32) mmol/L BUN (7-18) mg/dL Creatinine (0.70-1.30) mg/dL Est Cr Clr Drug Dosing mL/min Estimated GFR (MDRD) (>60) BUN/Creatinine Ratio (9-20) Glucose (80-116) mg/dL Lactic Acid (0.4-2.0) mmol/L Calcium (8.6-10.2) mg/dL Total Bilirubin (0.1-1.3) mg/dL AST (5-25) IU/L ALT (12-36) U/L Alkaline Phosphatase (56-112) IU/L Troponin I (4.0-60.3) pg/mL C-Reactive Protein (0.5-0.9) mg/dL NT-Pro-B Natriuret Pep (<=125) pg/mL Total Protein (6.0-8.0) g/dL Albumin (3.2-4.6) g/dL Globulin g/dL Albumin/Globulin Ratio Urine Color (YELLOW) Urine Appearance (CLEAR) Urine pH (5.0-6.5) Ur Specific [place] (1.010-1.025) Urine Protein (NEGATIVE) mg/dL Urine Glucose (UA) (NORMAL) mg/dL Urine Ketones (NEGATIVE) mg/dL Urine Occult Blood (NEGATIVE) Urine Nitrite (NEGATIVE) Urine Bilirubin (NEGATIVE) Urine Urobilinogen (NEGATIVE) mg/dL Ur Leukocyte Esterase (NEGATIVE) Urine RBC (0-5) Urine WBC (0-5) Ur Squamous Epith Cells (NS,R,O) Urine Bacteria (NS) - Re-Assessments/Exams Free Text/Narrative Re-Assessment/Exam: 06/24/20 18:55 d/w Dr Cramer at [facility] who accepted pt in transfer CxR 1v on prelim ED read with dec'd expansion (6 ribs right, 7 ribs left), angles clear, mild congestion c/w hypoventilation pt received COVID vax x 2 in March pt with presumed dHF altho not confirmed on echo 2m ago (EF 70%, no comment on diastolic function) pt to be admitted to hospitalist with cardiology consult for further w/u and management Departure - Departure Time of Disposition: 18:59 Disposition: DC/Tfer to Acute Hospital 02 Reason for Transfer *Q: Other Condition: Fair Clinical Impression: Acute dyspnea, Diastolic heart failure, Peripheral edema, Hypoventilation, Elevated d-dimer, Acute renal failure, Acute prerenal azotemia Referrals: Marge Iyer MD [Primary Care Provider] - Sepsis Event Note (ED) - Evaluation Sepsis Screening Result: No Definite Risk - Focused Exam Vital Signs: Vital Signs Temp Pulse Resp BP Pulse Ox 06/24/20 16:04 37.1 C 87 22 H 122/83 95 - My Orders Last 24 Hours: My Active Orders 06/24/20 16:54 Chest 1V Frontal [CR] Stat EKG 12 Lead [EK] Routine 06/24/20 16:55 EKG Documentation Completion [RC] ASDIRECTED - Assessment/Plan Last 24 Hours: My Active Orders 06/24/20 16:54 Chest 1V Frontal [CR] Stat EKG 12 Lead [EK] Routine 06/24/20 16:55 EKG Documentation Completion [RC] ASDIRECTED
[2020-06-24] MEDS ORDERED: Furosemide 40 MG/4 ML VIAL IVPUSH ONE (18:41)
--- NOTE | 2020-06-25 15:30 | CR ---
CHEST ONE VIEW 9292 INDICATION: Short of breath. An AP portable upright view of the chest was obtained 06/24/2020 and compared with 04/18/2020 and 06/18/2019. Overlying EKG leads are noted. The heart appears to be at the upper limits of normal in size but is difficult to evaluate due to relatively poor inspiration and AP positioning. The aorta is tortuous with calcification in the arch. Elevated right hemidiaphragm is noted, most likely anatomic. A definite active infiltrate or effusion was not identified. However, there is bronchial wall cuffing at the lower lung brady which may be on the basis of active peribronchial disease and should be correlated clinically. Upper lung field pulmonary vasculature is mildly prominent which could be on the basis of early or mild CHF and should be correlated clinically. Other cause of pulmonary vascular congestion would also be a consideration. IMPRESSION: 1. No definite acute process. However, there is bronchial wall cuffing at the lung bases which could represent active peribronchial disease--correlate clinically. 2. ASHD, with the possibility of mild or early CHF there being a somewhat prominent appearance of the upper lung field pulmonary vasculature. MTDD
== END 2020-06-24 19:25 ==
LOC: FB.ED 16:04
DX: I11.0 Hypertensive heart disease with heart failure (principal); I50.30 Unspecified diastolic (congestive) heart failure; R06.89 Other abnormalities of breathing; R79.1 Abnormal coagulation profile; N17.9 Acute kidney failure, unspecified; R79.89 Other specified abnormal findings of blood chemistry; E66.9 Obesity, unspecified; Z68.42 Body mass index [BMI] 45.0-49.9, adult; Z79.01 Long term (current) use of anticoagulants; Z79.899 Other long term (current) drug therapy; Z86.73 Personal history of transient ischemic attack (TIA), and cerebral infarction without residual deficits; Z88.0 Allergy status to penicillin
CPT/HCPCS: 36415; 71045; 80053; 81001; 83605; 83880; 84484; 85025; 85379; 85610; 86140; 87086; 87088; 87186; 93005; 96374; 99285; J1940

== ENCOUNTER 2021-12-17 14:51 | Emergency (ER) | payer MEDICARE ==
[2021-12-17 15:25] LABS: BASE EXCESS VENOUS,POC 4 mmol/L (-2 - 3+); PCO2 VENOUS,POC 53 mmHg (41-51); PH VENOUS,POC 7.36 pH Units (7.32-7.43)
[2021-12-17 15:36] LABS: ESTIMATED GFR 54 mL/min (>60)
[2021-12-17 16:17] LABS: CORONAVIRUS COVID-19 NAA NEGATIVE (NEGATIVE)
== END 2021-12-17 16:53 | disposition home or self-care (01) ==
LOC: FB.ED 14:51
DX: R46.4 Slowness and poor responsiveness (principal); I10 Essential (primary) hypertension; E66.9 Obesity, unspecified; Z68.43 Body mass index [BMI] 50.0-59.9, adult; Z88.0 Allergy status to penicillin; Z79.899 Other long term (current) drug therapy; Z20.822 Contact with and (suspected) exposure to COVID-19
CPT/HCPCS: 0241U; 36415; 80053; 84484; 85025; 86140; 99284